=== PATIENT | female | born 1935 | race Caucasian/White ===

== ENCOUNTER 2023-03-22 17:28 | Emergency (ER) | payer MEDICARE ==
[~2023-03-22] VITALS: Ht 167.6 cm; Wt 76.2 kg
[2023-03-22 17:34] VITALS: BP 170/99
== END 2023-03-22 18:00 | disposition home or self-care (01) ==
LOC: ER 17:28
DX: S61.412A Laceration without foreign body of left hand, initial encounter (principal); W22.01XA Walked into wall, initial encounter; Y92.009 Unspecified place in unspecified non-institutional (private) residence as the place of occurrence of the external cause
CPT/HCPCS: 99282

== ENCOUNTER 2023-10-23 10:56 | Emergency (ER) | payer MEDICARE ==
[~2023-10-23] VITALS: Ht 160 cm; Wt 74.8 kg
[2023-10-23 11:05] VITALS: BP 148/91
[2023-10-23 11:43] LABS: BASOPHILS ABSOLUTE AUTO 0.03 K/mm3 (0.00-0.23); BASOPHILS PERCENT AUTO 1 % (0-2); EOSINOPHILS ABSOLUTE AUTO 0.09 K/mm3 (0.00-0.68); EOSINOPHILS PERCENT AUTO 1 % (0-6); Hemoglobin 13.8 g/dL (11.5-16.0); IMMATURE GRAN ABSOLUTE AUTO 0.02 K/mm3 (0.00-0.10); IMMATURE GRAN PERCENT AUTO 0 % (0-1); LYMPHOCYTES ABSOLUTE AUTO 1.75 K/mm3 (0.84-5.20); LYMPHOCYTES PERCENT AUTO 28 % (21-46); MONOCYTES ABSOLUTE AUTO 0.58 K/mm3 (0.16-1.47); MONOCYTES PERCENT AUTO 9 % (4-13); Mean Corpuscular HGB 30.9 pg (26.0-34.0); Mean Corpuscular HGB Conc 32.9 g/dL (31.5-36.5); Mean Corpuscular Volume 94 fL (80-100); Mean Platelet Volume 9.5 fL (9.1-12.4); NEUTROPHILS ABSOLUTE AUTO 3.83 K/mm3 (1.96-9.15); NEUTROPHILS PERCENT AUTO 61 % (41-73); Platelet Count 268 K/mm3 (150-400); RDW Coefficient Variation 13.2 % (11.7-14.2); Red Blood Cell Count 4.46 M/mm3 (3.80-5.20)
[2023-10-23 11:54] LABS: Albumin, Blood 3.2 g/dL (3.4-5.0); Albumin/Globulin Ratio 0.9 (0.8-1.8); Bilirubin, Total 0.5 mg/dL (0.1-1.0); Bun/Creatinine Ratio 18.4 (12.0-20.0); Calcium, Blood 8.9 mg/dL (8.5-10.1); Creatinine, Blood 1.03 mg/dL (0.40-1.00); Globulin, Blood 3.7 g/dL (2.2-4.0); Potassium, Blood 4.5 mmol/L (3.5-5.5); Total Protein, Blood 6.9 g/dL (6.4-8.2)
[2023-10-23] MEDS ORDERED: NS 1,000 ML IV SCH (12:40)
== END 2023-10-23 14:01 | disposition home or self-care (01) ==
LOC: ER 10:56
PROVIDERS: Emergency Medicine
DX: R00.2 Palpitations (principal)
CPT/HCPCS: 80053; 85025; 93005; 93010; 99285-25; J7030

== ENCOUNTER 2024-03-06 10:09 | Inpatient (IN) | payer MEDICARE ==
[~2024-03-06] VITALS: Ht 157.5 cm; Wt 74.8 kg
[2024-03-06] MEDS ORDERED: Ondansetron HCl 2 MG / ML 2ML Vial IV ONE (11:25)
[2024-03-06 11:34] LABS: BASOPHILS ABSOLUTE AUTO 0.06 K/mm3 (0.00-0.23); BASOPHILS PERCENT AUTO 1 % (0-2); EOSINOPHILS ABSOLUTE AUTO 0.01 K/mm3 (0.00-0.68); EOSINOPHILS PERCENT AUTO 0 % (0-6); Hematocrit 38.2 % (33.0-51.0); Hemoglobin 12.8 g/dL (11.5-16.0); IMMATURE GRAN ABSOLUTE AUTO 0.05 K/mm3 (0.00-0.10); IMMATURE GRAN PERCENT AUTO 1 % (0-1); LYMPHOCYTES ABSOLUTE AUTO 1.27 K/mm3 (0.84-5.20); LYMPHOCYTES PERCENT AUTO 14 % (21-46); MONOCYTES ABSOLUTE AUTO 1.14 K/mm3 (0.16-1.47); MONOCYTES PERCENT AUTO 12 % (4-13); Mean Corpuscular HGB 31.3 pg (26.0-34.0); Mean Corpuscular HGB Conc 33.5 g/dL (31.5-36.5); Mean Corpuscular Volume 93 fL (80-100); NEUTROPHILS ABSOLUTE AUTO 6.86 K/mm3 (1.96-9.15); NEUTROPHILS PERCENT AUTO 73 % (41-73); Platelet Count 316 K/mm3 (150-400); RDW Coefficient Variation 13.2 % (11.7-14.2); RDW Standard Deviation 45.7 fL (35.1-46.3); Red Blood Cell Count 4.09 M/mm3 (3.80-5.20); White Blood Cell Count 9.39 K/mm3 (4.00-11.30)
[2024-03-06 11:59] LABS: Albumin, Blood 2.4 g/dL (3.4-5.0); Albumin/Globulin Ratio 0.6 (0.8-1.8); Bilirubin, Total 1.1 mg/dL (0.1-1.0); Bun/Creatinine Ratio 14.3 (12.0-20.0); Calcium, Blood 8.6 mg/dL (8.5-10.1); Creatinine, Blood 0.84 mg/dL (0.40-1.00); Globulin, Blood 4.2 g/dL (2.2-4.0); Potassium, Blood 3.5 mmol/L (3.5-5.5); Total Protein, Blood 6.6 g/dL (6.4-8.2)
[2024-03-06] MEDS ORDERED: Acetaminophen 500 MG Tab PO ONE (14:30)
[2024-03-06] MEDS ORDERED: CefTRIAXone Sodium 2,000 MG in NS 100 ML IV ONE (14:45)
[2024-03-06] MEDS ORDERED: Vancomycin HCL 1,750 MG in NS 500 ML IV ONE (15:10)
[2024-03-06] MEDS ORDERED: Lactated Ringer's 1,000 ML IV SCH (18:40)
[2024-03-06] MEDS ORDERED: Ondansetron HCl 2 MG / ML 2ML Vial IV PRN (18:40)
[2024-03-06] MEDS ORDERED: FLU VACC TS2024-25(6MOS UP)/PF 45 MCG/0.5 ML SYRINGE IM SCH (18:40)
[2024-03-06] MEDS ORDERED: Flecainide Acet50 MG PO (20:32)
[2024-03-06 20:45] VITALS: BP 147/73
[2024-03-06] MEDS ORDERED: Lactobacil 2-S.Thermo-Bifido 1 1 Cap PO SCH (21:00)
[2024-03-06] MEDS ORDERED: Aspir 8181 MG PO (21:47)
[2024-03-07] VITALS (14 sets, daily range): BP systolic 119–148; BP diastolic 56–81
--- NOTE | 2024-03-07 04:32 | NUR ---
SHIFT SUMMARY,PATIENT WAS ABLE TO SLEEP MOST OF THE SHIFT. SHE DID NOT REQUEST PAIN MEDS. LR/ 100ML. TELE SR@98. WE TRIED TO KEEP HER R HAND ELEVATED ON PILLOWS.
[2024-03-07] MEDS ORDERED: Enoxaparin 40 MG/0.4 ML SYR SC SCH (09:00)
[2024-03-07] MEDS ORDERED: Acetaminophen 325 MG TABLET PO PRN (10:50)
[2024-03-07] MEDS ORDERED: OxyCODONE HCL 5 MG TAB PO PRN (10:50)
[2024-03-07] MEDS ORDERED: METO25ER PO (10:54)
[2024-03-07] MEDS ORDERED: MAGNESIUM250 MG PO (11:55)
[2024-03-07] MEDS ORDERED: THERA-D2000 UNIT PO (11:55)
[2024-03-07] MEDS ORDERED: CALCIUM CARBON500 M1 PO (11:55)
[2024-03-07] MEDS ORDERED: CefTRIAXone Sodium 2,000 MG in NS 100 ML IV SCH (15:00)
[2024-03-07] MEDS ORDERED: Lactated Ringer's 1,000 ML IV SCH (15:25)
--- NOTE | 2024-03-07 15:35 | NUR ---
PATIENT TAKEN DOWN TO DAY SURGERY VIA WHEELCHAIR TO HAVE R WRIST I&D. PATIENT ALERT AND INTERACTIVE.
--- NOTE | 2024-03-07 15:38 | NUR ---
History, Chart, Medications and Allergies reviewed before start of procedure. Pre-Op teaching done. Pt verbalizes understanding. PT REMOVED DENTURES INTO DENTURE CUP AND LEFT THEM IN MED FLOOR ROOM ALONG WITH ALL OTHER BELONGINGS. PT UNABLE TO REMOVE DEPENDS D/T POSS UTI AND INCONTINENCE. PT LAST ATE BREAKFAST APPROX 0830. ANES PROVIDER AWARE OF THIS.
[2024-03-07] MEDS ORDERED: Albuterol HFA200 ACT/6.7 GM INH ONE (15:40)
[2024-03-07] MEDS ORDERED: Bupivacaine 0.5% HCl 5 MG/ML 30MLVIAL ONE (15:40)
[2024-03-07] MEDS ORDERED: propofoL 20 ML IV ONE (15:45)
[2024-03-07] MEDS ORDERED: FentaNYL Citrate 50 MCG/ML 2 ML Injection ONE ×3 (16:00→21:17)
[2024-03-07] MEDS ORDERED: Vancomycin HCL 1,250 MG in NS 250 ML IV SCH (16:00)
[2024-03-07] MEDS ORDERED: Ondansetron HCl 2 MG / ML 2ML Vial ONE ×2 (16:03→22:21)
[2024-03-07] MEDS ORDERED: Dexamethasone Sod Phos 10 MG/ML 1ML VIAL ONE ×2 (16:03→22:21)
[2024-03-07] MEDS ORDERED: EpiNEPhrine 1 MG/1 ML 1ML Vial ONE (16:27)
[2024-03-07] MEDS ORDERED: Ketorolac Tromethamine 30mg Vial ONE (16:27)
--- NOTE | 2024-03-07 17:05 | NUR ---
03/07/24 1705 Bess Bundy 0.5% BUPIVACAINE WAS MIXED WITH EPI BY TO CREATE A SOLUTION OF 0.5% BUPIVACAINE WITH EIP 1:200,000. MIXTURE WAS POURED ONTO THE STERILE FIELD.
[2024-03-07] MEDS ORDERED: Metoclopramide HCl 5MG / ML 2ML Vial ONE (17:19)
--- NOTE | 2024-03-07 19:26 | NUR ---
SHIFT SUMMARY PATIENT ALERT AND INTERACTIVE. PATIENT UP TO COMMODE TO VOID/STOOL WITH MINIMAL ASSIST. PATIENT HAVING PAIN/SORENESS IN R WRIST WITH MOVEMENT. PATIENT STATES THAT IT DOESNT HURT IF SHE DOESNT MOVE IT. SLIGHT SWELLING NOTED AND DISCOLORATION PRIOR TO SURGERY. POST OP, PATIENT AWAKE AND INTERACTIVE. PATIENT UP TO COMMODE WITH MINIMAL ASSIST. R WRIST WRAPPED WITH ACCORDIAN DRAIN. SCANT BLOODY DRAINAGE NOTED. PATIENT ABLE TO MOVE ALL OF HER FINGERS AND CAP REFILL PRESENT.
[2024-03-07] MEDS ORDERED: propofoL 0 ML IV ONE (21:17)
[2024-03-07] MEDS ORDERED: Rocuronium Bromide 10 MG/ML 5ML Injection IV ONE (22:21)
[2024-03-07] MEDS ORDERED: ePHEDrine Sulfate 50 MG/ML 1ML Injection ONE (22:21)
[2024-03-08 02:19] VITALS: BP 135/78
--- NOTE | 2024-03-08 04:19 | NUR ---
SHIFT SUMMARY. PATIENT IS A&OX4. PATIENT CALLS APPROPRIATELY AND IS ABLE TO MAKE HER NEEDS KNOWN. PATIENT IS INDEPENDENT AT BASELINE. PATIENT UP TO BSC WITH 1P SBA D/T SURGCAL PROCEDURE DONE 03/07/24. PATIENT IS PLEASANT AND COOPERATIVE WITH CARE. PATIENT C/O PAIN X1-PATIENT NOT MEDICATED PATIENT WAS RESTING AND REQUESTED NOT BE WOKEN UP UNLESS ABSOLUTELY NECESSARY. PATIENTS BED IS LOCKED IN THE LOWEST POSITION WITH CALL LIGHT IN REACH. CARE IS ONGOING.
[2024-03-08 06:26] LABS: BASOPHILS ABSOLUTE AUTO 0.02 K/mm3 (0.00-0.23); BASOPHILS PERCENT AUTO 0 % (0-2); EOSINOPHILS PERCENT AUTO 0 % (0-6); Hematocrit 32.2 % (33.0-51.0); IMMATURE GRAN ABSOLUTE AUTO 0.03 K/mm3 (0.00-0.10); IMMATURE GRAN PERCENT AUTO 1 % (0-1); LYMPHOCYTES ABSOLUTE AUTO 0.47 K/mm3 (0.84-5.20); LYMPHOCYTES PERCENT AUTO 9 % (21-46); MONOCYTES ABSOLUTE AUTO 0.35 K/mm3 (0.16-1.47); MONOCYTES PERCENT AUTO 7 % (4-13); Mean Corpuscular HGB 31.2 pg (26.0-34.0); Mean Corpuscular HGB Conc 34.2 g/dL (31.5-36.5); Mean Corpuscular Volume 91 fL (80-100); NEUTROPHILS ABSOLUTE AUTO 4.38 K/mm3 (1.96-9.15); NEUTROPHILS PERCENT AUTO 83 % (41-73); Platelet Count 270 K/mm3 (150-400); RDW Coefficient Variation 13.1 % (11.7-14.2); RDW Standard Deviation 43.5 fL (35.1-46.3); Red Blood Cell Count 3.53 M/mm3 (3.80-5.20); White Blood Cell Count 5.25 K/mm3 (4.00-11.30)
[2024-03-08 06:57] LABS: Albumin, Blood 1.9 g/dL (3.4-5.0); Albumin/Globulin Ratio 0.5 (0.8-1.8); Bilirubin, Total 0.4 mg/dL (0.1-1.0); Bun/Creatinine Ratio 11.6 (12.0-20.0); Calcium, Blood 8.9 mg/dL (8.5-10.1); Creatinine, Blood 0.69 mg/dL (0.40-1.00); Globulin, Blood 4.1 g/dL (2.2-4.0); Potassium, Blood 3.5 mmol/L (3.5-5.5)
[2024-03-08 07:34] VITALS: BP 149/82
[2024-03-08] MEDS ORDERED: Metoprolol Succinate 25 MG TABCR PO SCH (09:00)
[2024-03-08 11:56] VITALS: BP 125/71
[2024-03-08 15:40] LABS: Vancomycin, Trough 9.9 ug/mL (5.0-10.0)
[2024-03-08 15:41] VITALS: BP 152/76
[2024-03-08] MEDS ORDERED: Vancomycin HCL 750 MG in NS 250 ML IV SCH (16:10)
--- NOTE | 2024-03-08 17:57 | NUR ---
SHIFT SUMMARY PATIENT ALERT AND INTERACTIVE. PATIENT UP TO COMMODE MULTIPLE TIMES WITH MINIMAL ASSIST. PATIENT STATES WRIST SORE AND ABLE TO MOVE ALL FINGERS. BLOODY DRAINAGE NOTED IN ACCORDIAN DRAIN TUBING. DR MOSER IN TO SEE PATIENT. PLANS TO LEAVE DRAIN FOR A FEW MORE DAYS. WAITING FOR CULTURE RESULTS TO DECIDE ANTIBIOTICS FOR DISCHARGE. PATIENT COMPLAINING OF RECTAL PAIN WHEN TRYING TO HAVE A BM. PATIENT STATES SHE HAD A LARGE BM PRIOR TO COMING TO THE HOSPITAL. PATINT STATES THAT SHE HAS GI ISSUES AND NEEDS TO FOLLOW UP WITH SOMEONE AT SOME POINT. PATIENT PASSING BROWN LIQUID STOOL WITH PALE RED TINT TO IT.
[2024-03-08 19:42] VITALS: BP 131/68
--- NOTE | 2024-03-09 04:22 | NUR ---
HIFT SUMMARY. PATIENT IS A&OX4. PATIENT IS 1P MINIMAL ASSIST TO THE BSC-PATIENTS GAIT IS STEADY. PATIENT HAS DRAIN TO RIGHT WRIST THAT IS PUTTING OUT MINIMAL DISCHARGE. PATIENT IS PLEASANT AND COOPERATIVE WITH CARE. PATIENT REPORTS THAT SHE HAS DISCOMFORT WITH BOWEL MOVEMENTS-STOOL HAS A REDISH TINT AT TIMES-PATIENT BELIEVES SHE MIGHT HAVE A HEMMIROID-WILL RELAY TO DAYSHIFT NURSE. PATIENTS BED IS LOCKED IN THE LOWEST POSITION WITH CALL LIGHT IN REACH. CARE IS ONGOING.
[2024-03-09 04:34] VITALS: BP 126/83
[2024-03-09 07:50] VITALS: BP 138/71
[2024-03-09 14:17] LABS: Adenovirus F 40/41 Not Detected (NOT DETECT); Astrovirus Not Detected (NOT DETECT); Campylobacter Sp Not Detected (NOT DETECT); Cryptosporidium Not Detected (NOT DETECT); Cyclospora Cayetanensis Not Detected (NOT DETECT); E. Coli O157 Not Detected (NOT DETECT); Entamoeba Histolytica Not Detected (NOT DETECT); Enteroaggregative E. coli-EAEC Not Detected (NOT DETECT); Enteropathogenic E. coli-EPEC Not Detected (NOT DETECT); Enterotoxigenic E. coli-ETEC Not Detected (NOT DETECT); Giardia Lamblia Not Detected (NOT DETECT); Norovirus GI/GII Not Detected (NOT DETECT); Plesiomonas Shigelloides Not Detected (NOT DETECT); Rotavirus A Not Detected (NOT DETECT); Salmonella Sp Not Detected (NOT DETECT); Sapovirus Not Detected (NOT DETECT); Shiga Toxin-prod E. coli-STEC Not Detected (NOT DETECT); Shigella/Enteroin E. coli-EIEC Not Detected (NOT DETECT); Vibrio Cholerae Not Detected (NOT DETECT); Vibrio Sp Not Detected (NOT DETECT); Yersinia Enterocolitica Not Detected (NOT DETECT)
[2024-03-09] MEDS ORDERED: NS 250 ML IV PRN (14:30)
[2024-03-09 14:54] VITALS: BP 126/69
[2024-03-09 15:20] LABS: Vancomycin, Trough 15.9 ug/mL (5.0-10.0)
[2024-03-09] MEDS ORDERED: Dose Adjust by Pharmacy XX STA (15:29)
[2024-03-09 19:49] VITALS: BP 149/76
[2024-03-09] MEDS ORDERED: Phenyleph/Mineral Oil/Petrolat 1 APPLIC/57 GM Tube PR PRN (20:00)
[2024-03-10 02:50] VITALS: BP 137/69
[2024-03-10 05:34] LABS: BASOPHILS ABSOLUTE AUTO 0.03 K/mm3 (0.00-0.23); BASOPHILS PERCENT AUTO 1 % (0-2); EOSINOPHILS ABSOLUTE AUTO 0.06 K/mm3 (0.00-0.68); EOSINOPHILS PERCENT AUTO 1 % (0-6); Hematocrit 32.6 % (33.0-51.0); Hemoglobin 10.8 g/dL (11.5-16.0); IMMATURE GRAN ABSOLUTE AUTO 0.07 K/mm3 (0.00-0.10); IMMATURE GRAN PERCENT AUTO 1 % (0-1); LYMPHOCYTES ABSOLUTE AUTO 1.09 K/mm3 (0.84-5.20); LYMPHOCYTES PERCENT AUTO 17 % (21-46); MONOCYTES ABSOLUTE AUTO 0.89 K/mm3 (0.16-1.47); MONOCYTES PERCENT AUTO 14 % (4-13); Mean Corpuscular HGB 30.7 pg (26.0-34.0); Mean Corpuscular HGB Conc 33.1 g/dL (31.5-36.5); Mean Corpuscular Volume 93 fL (80-100); Mean Platelet Volume 8.9 fL (9.1-12.4); NEUTROPHILS ABSOLUTE AUTO 4.32 K/mm3 (1.96-9.15); NEUTROPHILS PERCENT AUTO 67 % (41-73); Platelet Count 289 K/mm3 (150-400); RDW Coefficient Variation 13.6 % (11.7-14.2); RDW Standard Deviation 45.9 fL (35.1-46.3); Red Blood Cell Count 3.52 M/mm3 (3.80-5.20); White Blood Cell Count 6.46 K/mm3 (4.00-11.30)
[2024-03-10 05:54] LABS: Bun/Creatinine Ratio 11.6 (12.0-20.0); Calcium, Blood 8.4 mg/dL (8.5-10.1); Creatinine, Blood 0.78 mg/dL (0.40-1.00); Potassium, Blood 3.4 mmol/L (3.5-5.5)
--- NOTE | 2024-03-10 06:42 | NUR ---
NOC SUMMARY- PT PAIN MANAGED WELL. PT COMPLAINING OF HEMORRHOID DISCOMFORT. PROVIDER ORDERED PREP H. MED APPLIED W/ RELIEF. PT HAD HER IV INFILTRATE WITH VANCO. IV REMOVED AND ARM ELEVATED. PT HAS NEW IV. PT CONTINUES TO HAVE FREQUENT BM'S, LIQUID. PT RESTED QUIETLY THROUGH THE SHIFT. CALL LIGHT IN REACH.
[2024-03-10 07:37] VITALS: BP 124/81
[2024-03-10] MEDS ORDERED: Potassium Chloride 20 MEQ TabCR PO ONE (10:00)
[2024-03-10 14:54] VITALS: BP 107/76
--- NOTE | 2024-03-10 17:55 | NUR ---
SHIFT SUMMARY: PT A/O X4. PLEASANT AND COOPERATIVE WITH CARE. PT CONTINUED TO C/O ABD PAIN THIS SHIFT. PT DENIED NEED FOR PAIN MEDICATION. CONTINUES TO HAVE LOOSE DIARRHEA. DR. MOSER IN ROOM THIS AM TO ASSESS SURGICAL SITE. PT HAD ARM UNWRAPPED FOR APPROX 30 MINUTES THIS AM. AWAITING CULTURES FOR PROPER ABXPOST DISCHARGE. CALL FROM TELE THIS AM STATING PT CONVERTED TO AFIB. PT STATED SHE TAKES MEDICATION FOR AFIB BUT HAS NOT BEEN TAKING IT SINCE ADMISSION. SPOKE WITH DR. PALOMO AND HAD ORDER PLACED FOR HOME MEDICATION. CALL LIGHT IN REACH. BED IN LOWEST POSITION.
[2024-03-10 19:44] VITALS: BP 139/78
[2024-03-10] MEDS ORDERED: Flecainide Acetate 100 MG Tab PO SCH (21:00)
[2024-03-11 01:35] VITALS: BP 120/60
--- NOTE | 2024-03-11 04:26 | NUR ---
SHIFT SUMMARY PATIENT HAD NO ACUTE CHANGES. SLEEPING AT SHIFT CHANGE. AXOX 4 AND ONE ASSIST TO BSC. DENIES CHEST PAIN, SOB, AND N/V. VSS/AFEBRILE. PIV INTACT. IV ABX INFUSED. DRESSING TO R FOREARM INTACT. TELE MONITOR NSR 84 WITH [employer] SALESPERSON REPORTED SHE CONVERTED @ 18:09 FROM A-FLUTTER. CALL LIGHT IN REACH. BED IN LOWEST POSITION. WILL CONTINUE TO MONITOR UNTIL DAY SHIFT NURSE ASSUMES CARE.
[2024-03-11 07:17] VITALS: BP 128/67
[2024-03-11 08:24] LABS: BASOPHILS ABSOLUTE AUTO 0.03 K/mm3 (0.00-0.23); BASOPHILS PERCENT AUTO 1 % (0-2); EOSINOPHILS PERCENT AUTO 2 % (0-6); Hematocrit 30.3 % (33.0-51.0); Hemoglobin 10.1 g/dL (11.5-16.0); IMMATURE GRAN ABSOLUTE AUTO 0.06 K/mm3 (0.00-0.10); IMMATURE GRAN PERCENT AUTO 1 % (0-1); LYMPHOCYTES ABSOLUTE AUTO 0.97 K/mm3 (0.84-5.20); LYMPHOCYTES PERCENT AUTO 18 % (21-46); MONOCYTES ABSOLUTE AUTO 0.71 K/mm3 (0.16-1.47); MONOCYTES PERCENT AUTO 13 % (4-13); Mean Corpuscular HGB Conc 33.3 g/dL (31.5-36.5); Mean Corpuscular Volume 93 fL (80-100); Mean Platelet Volume 9.1 fL (9.1-12.4); NEUTROPHILS ABSOLUTE AUTO 3.43 K/mm3 (1.96-9.15); NEUTROPHILS PERCENT AUTO 65 % (41-73); Platelet Count 259 K/mm3 (150-400); RDW Coefficient Variation 13.3 % (11.7-14.2); RDW Standard Deviation 45.4 fL (35.1-46.3); Red Blood Cell Count 3.26 M/mm3 (3.80-5.20)
[2024-03-11 08:47] LABS: Albumin, Blood 1.6 g/dL (3.4-5.0); Albumin/Globulin Ratio 0.4 (0.8-1.8); Bilirubin, Total 0.4 mg/dL (0.1-1.0); Bun/Creatinine Ratio 10.8 (12.0-20.0); Calcium, Blood 8.2 mg/dL (8.5-10.1); Creatinine, Blood 0.65 mg/dL (0.40-1.00); Globulin, Blood 3.6 g/dL (2.2-4.0); Potassium, Blood 3.6 mmol/L (3.5-5.5); Total Protein, Blood 5.2 g/dL (6.4-8.2)
--- NOTE | 2024-03-11 09:00 | NUR ---
Pt laying in bed, awake, a/ox4, cooperative with care, follows commands well, states her abd hurts and is continuing to have loose stools since before she came in, states she spoke to about it, lungs are clear in upper reyes, dim in bases, resp even and unlabored, no cough noted, hrr, tele in place, currenlty running sr per monitor, see strip, has gone in and out of afib, no edema noted, ppp+1, cap refill <3 sec, vs stable, afebrile, piv to lac, site is clear and patent, btx4, abd flat soft nontender, voids without diff, skin c/w/d, except rfa has dressing for I&D, no drainage noted, ernst irene, call light in reach.
[2024-03-11] MEDS ORDERED: Loperamide HCl 2 MG Cap PO ONE (10:40)
[2024-03-11] MEDS ORDERED: VISBIOME 112.51 EACH PO (15:02)
[2024-03-11] MEDS ORDERED: OXYC5 PO (15:02)
[2024-03-11] MEDS ORDERED: CLIN150 PO (15:03)
[2024-03-11 15:34] LABS: Vancomycin, Trough 14.8 ug/mL (5.0-10.0)
[2024-03-11 16:41] VITALS: BP 135/70
--- NOTE | 2024-03-11 18:02 | NUR ---
Pt daughter here to take her home, she has been discharged, went over instructions with both of them, they verbalized understanding, iv removed intact, hard script for oxy was given to daughter to fill, she states she did, left via wheelchair with furniture mechanic in attendence with all her belongings.
== END 2024-03-11 18:14 | disposition home or self-care (01) | DRG 506 ==
LOC: ER 10:09 → MEDS 18:36 → ERHOLD 18:36 → MEDS 20:35
PROVIDERS: Family Medicine; Nurse Practitioner Acute Care; Physician Assistant; Student in an Organized Health Care Education/Training Program; ADMIT Student in an Organized Health Care Education/Training Program
PROC: 0R9N3ZZ Drainage of Right Wrist Joint, Percutaneous Approach (ICD-10-PCS; principal; 2024-03-06)
PROC: 0R9N0ZZ Drainage of Right Wrist Joint, Open Approach (ICD-10-PCS; 2024-03-07)
PROC: 0RBN0ZZ Excision of Right Wrist Joint, Open Approach (ICD-10-PCS; 2024-03-07)
DX: M00.9 Pyogenic arthritis, unspecified (principal); L03.113 Cellulitis of right upper limb; I48.91 Unspecified atrial fibrillation; R19.7 Diarrhea, unspecified; E78.5 Hyperlipidemia, unspecified; M25.431 Effusion, right wrist; Z88.5 Allergy status to narcotic agent; Z98.890 Other specified postprocedural states; Z79.899 Other long term (current) drug therapy; Z79.82 Long term (current) use of aspirin; Z95.818 Presence of other cardiac implants and grafts
CPT/HCPCS: 20605; 36415; 73110; 73201; 80048; 80053; 80202; 83605; 83735; 85025; 85651; 86140; 87040; 87070; 87075; 87205; 87507; 96365-59; 96366-59; 96367-59; 96375-59; 99284-25; A9270; J0171; J0696; J1100; J1650; J1885; J2405; J2704; J2765; J3010; J3370; J7040; J7050; J7120; Q9967

== ENCOUNTER 2024-05-09 19:45 | Observation (INO) | payer MEDICARE ==
[~2024-05-09] VITALS: Ht 157.5 cm; Wt 69.4 kg
[~2024-05-09 19:45] MED LIST: Aspir 8181 MG PO; CALCIUM CARBON500 M1 PO; CLIN150 PO; Flecainide Acet50 MG PO; MAGNESIUM250 MG PO; METO25ER PO; OXYC5 PO; THERA-D2000 UNIT PO; VISBIOME 112.51 EACH PO
[2024-05-09 21:06] LABS: BASOPHILS ABSOLUTE AUTO 0.06 K/mm3 (0.00-0.23); BASOPHILS PERCENT AUTO 1 % (0-2); EOSINOPHILS ABSOLUTE AUTO 0.03 K/mm3 (0.00-0.68); EOSINOPHILS PERCENT AUTO 0 % (0-6); Hematocrit 37.6 % (33.0-51.0); Hemoglobin 12.5 g/dL (11.5-16.0); IMMATURE GRAN ABSOLUTE AUTO 0.05 K/mm3 (0.00-0.10); IMMATURE GRAN PERCENT AUTO 1 % (0-1); LYMPHOCYTES ABSOLUTE AUTO 2.55 K/mm3 (0.84-5.20); LYMPHOCYTES PERCENT AUTO 24 % (21-46); MONOCYTES ABSOLUTE AUTO 0.93 K/mm3 (0.16-1.47); MONOCYTES PERCENT AUTO 9 % (4-13); Mean Corpuscular HGB 30.6 pg (26.0-34.0); Mean Corpuscular HGB Conc 33.2 g/dL (31.5-36.5); Mean Corpuscular Volume 92 fL (80-100); Mean Platelet Volume 8.9 fL (9.1-12.4); NEUTROPHILS ABSOLUTE AUTO 7.16 K/mm3 (1.96-9.15); NEUTROPHILS PERCENT AUTO 66 % (41-73); Platelet Count 388 K/mm3 (150-400); RDW Coefficient Variation 14.6 % (11.7-14.2); RDW Standard Deviation 49.2 fL (35.1-46.3); Red Blood Cell Count 4.09 M/mm3 (3.80-5.20); White Blood Cell Count 10.78 K/mm3 (4.00-11.30)
[2024-05-09] MEDS ORDERED: Flecainide Acetate 100 MG Tab PO ONE (21:10)
[2024-05-09] MEDS ORDERED: Potassium Chl 20MEQ/Water100ML 100 ML IV SCH (21:40)
[2024-05-09] MEDS ORDERED: NS 1,000 ML IV SCH (21:40)
[2024-05-09 21:43] LABS: Albumin, Blood 2.1 g/dL (3.4-5.0); Albumin/Globulin Ratio 0.5 (0.8-1.8); Bilirubin, Total 0.8 mg/dL (0.1-1.0); Calcium, Blood 8.6 mg/dL (8.5-10.1); Creatinine, Blood 1.44 mg/dL (0.40-1.00); Globulin, Blood 4.6 g/dL (2.2-4.0); Potassium, Blood 2.4 mmol/L (3.5-5.5); Total Protein, Blood 6.7 g/dL (6.4-8.2)
[2024-05-09] MEDS ORDERED: Magnesium Sulf 2 GM/Water 50ML 50 ML IV ONE (21:45)
[2024-05-09 22:01] LABS: Magnesium, Blood 2.1 mg/dL (1.6-2.4)
[2024-05-09 22:24] LABS: Phosphorus, Blood 1.5 mg/dL (2.5-4.9); Thyroid Stimulating Hormone 5.98 uIU/mL (0.360-4.800)
[2024-05-09 23:48] LABS: Source, Urine Clean Catch
[2024-05-09 23:51] LABS: Bilirubin, Urine Neg (Neg); Blood, Urine 2+ (Neg); Glucose Qualitative, Urine Neg (Neg); Ketones, Urine Neg (Neg); Leukocyte Esterase, Urine 1+ (Neg); Nitrite, Urine Neg (Neg); Protein, Urine 2+ (Neg); Specific Gravity, Urine 1.005 (1.003-1.022); Urobilinogen, Urine 1+ (Normal); pH, Urine 6.5 (5.0-8.0)
[2024-05-09 23:52] LABS: Appearance, Urine Hazy (Clear); Color, Urine Yellow (P-Yellow)
[2024-05-09 23:58] LABS: Amorphous Light (0-Heavy); Bacteria Few /hpf; Red Blood Cells, Urine 0-2 /hpf (0-2); Squamous Epithelial Cells Mod /hpf (Few); White Blood Cells, Urine 0-2 /hpf (0-5)
[2024-05-10] MEDS ORDERED: FLU VACC TS2024-25(6MOS UP)/PF 45 MCG/0.5 ML SYRINGE IM SCH (00:15)
[2024-05-10] MEDS ORDERED: Potassium Phosphate Dibasic 15 MM in Dextrose 5% 250 ML IV SCH (01:00)
[2024-05-10] MEDS ORDERED: NS 250 ML IV PRN (02:15)
[2024-05-10 03:39] VITALS: BP 133/62
[2024-05-10 06:59] LABS: BASOPHILS ABSOLUTE AUTO 0.02 K/mm3 (0.00-0.23); BASOPHILS PERCENT AUTO 0 % (0-2); EOSINOPHILS ABSOLUTE AUTO 0.02 K/mm3 (0.00-0.68); EOSINOPHILS PERCENT AUTO 0 % (0-6); Hematocrit 32.7 % (33.0-51.0); Hemoglobin 10.9 g/dL (11.5-16.0); IMMATURE GRAN ABSOLUTE AUTO 0.03 K/mm3 (0.00-0.10); IMMATURE GRAN PERCENT AUTO 0 % (0-1); LYMPHOCYTES ABSOLUTE AUTO 2.03 K/mm3 (0.84-5.20); LYMPHOCYTES PERCENT AUTO 30 % (21-46); MONOCYTES ABSOLUTE AUTO 0.64 K/mm3 (0.16-1.47); MONOCYTES PERCENT AUTO 10 % (4-13); Mean Corpuscular HGB 30.4 pg (26.0-34.0); Mean Corpuscular HGB Conc 33.3 g/dL (31.5-36.5); Mean Corpuscular Volume 91 fL (80-100); Mean Platelet Volume 9.2 fL (9.1-12.4); NEUTROPHILS ABSOLUTE AUTO 3.95 K/mm3 (1.96-9.15); NEUTROPHILS PERCENT AUTO 59 % (41-73); Platelet Count 270 K/mm3 (150-400); RDW Coefficient Variation 14.6 % (11.7-14.2); RDW Standard Deviation 49.4 fL (35.1-46.3); Red Blood Cell Count 3.58 M/mm3 (3.80-5.20); White Blood Cell Count 6.69 K/mm3 (4.00-11.30)
[2024-05-10 07:09] LABS: Albumin, Blood 1.7 g/dL (3.4-5.0); Albumin/Globulin Ratio 0.4 (0.8-1.8); Bilirubin, Total 0.8 mg/dL (0.1-1.0); Bun/Creatinine Ratio 9.5 (12.0-20.0); Calcium, Blood 7.8 mg/dL (8.5-10.1); Creatinine, Blood 1.16 mg/dL (0.40-1.00); Globulin, Blood 3.8 g/dL (2.2-4.0); Magnesium, Blood 2.4 mg/dL (1.6-2.4); Phosphorus, Blood 1.2 mg/dL (2.5-4.9); Potassium, Blood 2.5 mmol/L (3.5-5.5); Total Protein, Blood 5.5 g/dL (6.4-8.2)
[2024-05-10 07:34] VITALS: BP 137/73
--- NOTE | 2024-05-10 08:30 | NUR ---
ASSUMPTION NOTE: THIS RN TO ASSUME CARE OF PATIENT. PATIENT LAYING IN BED, EASILY AROUSABLE. VITAL SIGNS TAKEN AND PATIENT IS STABLE. ASKED TO USE BED SIDE COMMODE, CONTINUES TO PASS LOOSE LIQUID STOOL. WAS ABLE TO EAT BREAKFAST MD CAME BY AND GAVE REGULAR DIET ORDERS. PATIENT HAS BED IN LOWEST POSITION AND CALL LIGHT WITHIN REACH.
[2024-05-10] MEDS ORDERED: Aspirin 81 MG Chew PO SCH (09:00)
[2024-05-10] MEDS ORDERED: Potassium Phosphate,Monobasic 500 MG Tablet PO SCH (09:00)
[2024-05-10] MEDS ORDERED: Flecainide Acetate 100 MG Tab PO SCH (09:00)
[2024-05-10] MEDS ORDERED: Metoprolol Succinate 25 MG TABCR PO SCH (09:00)
[2024-05-10] MEDS ORDERED: Loperamide HCl 2 MG Cap PO PRN (10:25)
[2024-05-10] MEDS ORDERED: Zinc Oxide Ointment 30 GM TOP PRN (10:25)
--- NOTE | 2024-05-10 11:17 | NUR ---
PATIENT WORKED WITH [facility]UP[facility]ER[facility] AND THEY SIGNED OFF PATIENT IS INDEPENDENT IN THE ROOM AND DID WELL WORKING WITH THEM.
[2024-05-10 11:53] VITALS: BP 114/59
[2024-05-10 13:15] LABS: Bun/Creatinine Ratio 10.8 (12.0-20.0); Creatinine, Blood 1.11 mg/dL (0.40-1.00); Magnesium, Blood 2.1 mg/dL (1.6-2.4); Phosphorus, Blood 2.1 mg/dL (2.5-4.9); Potassium, Blood 2.9 mmol/L (3.5-5.5)
--- NOTE | 2024-05-10 13:17 | NUR ---
PT DISCLOSED THAT SHE HAD A BOWEL OBSTRUCTION PRIOR AND WAS TAKEN TO [place] AND THE OBSTRUCTION WAS REMOVED. IT HAS BEEN 3 MONTHS THAT PATIENT HAS HAD DIARRHEA, GAS & ABDOMINAL PAIN. SHE IS SCHEDULED TO HAVE A COLONSCOPY THIS MONTH ON THE . PT NOTIFIED THAT THE ABDOMINAL CT DONE SHOWED INFLAMMATION AND COLLITIS. PATIENT HESITANT TO TAKE IMMODIUM ON EMAR WAS REASSURED THAT IT WILL THICKEN HER STOOL TO HELP WITH HER LOW POTTASIUM LEVELS. PATIENT HAS CALL LIGHT WITHIN REACH AND BED AT LOWEST POSITION.
[2024-05-10 15:27] VITALS: BP 115/56
--- NOTE | 2024-05-10 17:24 | NUR ---
SHIFT SUMMARY: PATIENT IS ALERT AND ORIENTED X4 AND ACTIVE IN HER CARE. ON TELE SHOWING SINUS RYTHM WITH RATE IN 80'S. SATTING >92% ON ROOM AIR. PATIENT CONTINUES TO PASS LIQUID & LOOSE STOOLS. COCCYX IS RED AND BLANCHABLE, ZINC CREAM WAS ORDERED AND IMMODIUM WAS ADDED. PATIENT WAS HESITANT ON TAKING THE IMMODIUM SHE HAS BEFORE AND FELT NO RELIEF. SHE STATE SHE HAD A PREVIOUS BOWEL OBSTRUCTION AND THAT IT DID NOT HELP PREVIOUSLY, SEE PREVIOUS NOTES FOR FURTHER INFORMATION. PATIENT WAS ABLE TO GET UP AND WORKED WITH OCCUPATIONAL THERAPY, AND THEY SIGNED OFF SHE IS INDEPENDENT IN THE ROOM. PATIENT WAS ABLE TO GET REST THROUGHOUT THE SHIFT. THIS RN WILL CONTINUE TO MONITOR UNTIL MANAGER APPLE RN ASSUMES CARE.
[2024-05-10] MEDS ORDERED: Diphenoxylat/Atrop 2.5 / 0.025MG 1 Tab PO PRN (18:00)
[2024-05-10 19:46] VITALS: BP 132/68
[2024-05-11 00:40] VITALS: BP 120/63
[2024-05-11 03:28] VITALS: BP 139/71
[2024-05-11 05:29] LABS: Albumin, Blood 1.5 g/dL (3.4-5.0); Albumin/Globulin Ratio 0.5 (0.8-1.8); Bilirubin, Total 0.5 mg/dL (0.1-1.0); Bun/Creatinine Ratio 14.4 (12.0-20.0); Calcium, Blood 7.4 mg/dL (8.5-10.1); Creatinine, Blood 0.98 mg/dL (0.40-1.00); Globulin, Blood 3.2 g/dL (2.2-4.0); Magnesium, Blood 1.9 mg/dL (1.6-2.4); Phosphorus, Blood 2.5 mg/dL (2.5-4.9); Potassium, Blood 2.7 mmol/L (3.5-5.5); Total Protein, Blood 4.7 g/dL (6.4-8.2)
--- NOTE | 2024-05-11 05:35 | NUR ---
SHIFT SUMMARY PT A&O X4, CALM, COOPERATIVE TO CARE. HR IN THE 70'S-80'S, SR, SHE DENIES CP/PRESSURE, NUMB/TINGLING. O2 >92% ON RA, SHE DENIES SOB. PT HAS HAD A FEW LOOSE STOOLS THIS SHIFT AND ONE FORMED STOOL. PT REPORTS HX OF HEMORHOIDS. PT REPORTS DIARRHEA X3 MONTHS AND THIS HAS CAUSED IRRITATION TO THE HEMORRHOIDS. PT RESTING IN BED AT THIS TIME. WILL MONITOR PT AND REPORT TO ONCOMING NURSE.
[2024-05-11] MEDS ORDERED: Potassium Chloride 20 MEQ TabCR PO ONE (06:20)
--- NOTE | 2024-05-11 06:44 | NUR ---
UPDATE PT HAD A POTASSIUM OF 2.7. CALLED PROVIDER TO UPDATE THEM OF THIS. ORDER PLACED FOR PO 60 MEQ OF POTASSIUM AND CMP FOR 1000.
[2024-05-11] MEDS ORDERED: Potassium Chloride 20 MEQ TabCR PO SCH (08:00)
[2024-05-11 08:45] VITALS: BP 123/57
[2024-05-11] MEDS ORDERED: Enoxaparin 40 MG/0.4 ML SYR SC SCH (09:00)
--- NOTE | 2024-05-11 10:53 | NUR ---
Pt states two large BM this morning, but no diarrhea. otherwise without any complaints. Ambulatory to the bathroom for toileting and personal hygeine, PCT assisting her.
[2024-05-11 11:44] VITALS: BP 107/60
--- NOTE | 2024-05-11 11:46 | NUR ---
BMP DRAW AT THIS TIME.
[2024-05-11 13:20] LABS: Bun/Creatinine Ratio 14.9 (12.0-20.0); Calcium, Blood 7.5 mg/dL (8.5-10.1); Creatinine, Blood 1.01 mg/dL (0.40-1.00); Potassium, Blood 3.9 mmol/L (3.5-5.5)
[2024-05-11] MEDS ORDERED: ASPI81CH PO (14:20)
[2024-05-11] MEDS ORDERED: FLECAINIDE 50 MG PO (14:21)
[2024-05-11] MEDS ORDERED: METO25ER PO (14:22)
[2024-05-11] MEDS ORDERED: POTCHL20ER PO (14:30)
--- NOTE | 2024-05-11 15:34 | NUR ---
Discharge instructions reviewed with the patient. Instructed to pickling drum operator her Rx at [facility], and start in the morning. She is also instructed to get lab work done tomorrow and follow up with her PCP on Wednesday (appointment info already given to pt by Nba) and for her colonoscopy on Wednesday next week. IV removed and tele removed. She is waiting for her daughter or son to arrive to give her a ride home.
--- NOTE | 2024-05-11 16:53 | NUR ---
Pt was taken out for discharge in wheelchair to waiting private vehicle driven by her daughter.
== END 2024-05-11 16:52 | disposition home or self-care (01) ==
LOC: ER 19:45 → PCU 19:46 → ERHOLD 19:46 → PCU 05-10 01:35
PROVIDERS: Emergency Medicine; Family Medicine; ADMIT Student in an Organized Health Care Education/Training Program
DX: E87.6 Hypokalemia (principal); E83.39 Other disorders of phosphorus metabolism; E86.0 Dehydration; K52.9 Noninfective gastroenteritis and colitis, unspecified; I48.91 Unspecified atrial fibrillation; E83.42 Hypomagnesemia; A41.9 Sepsis, unspecified organism; N39.0 Urinary tract infection, site not specified; N17.9 Acute kidney failure, unspecified; E87.21 Acute metabolic acidosis; E78.5 Hyperlipidemia, unspecified; Z66 Do not resuscitate; Z88.5 Allergy status to narcotic agent; Z79.82 Long term (current) use of aspirin; Z79.899 Other long term (current) drug therapy
CPT/HCPCS: 36415; 71260; 74177; 80048; 80053; 81001; 83605; 83735; 84100; 84443; 84484; 85025; 87040; 93005; 93010; 94762; 96365; 96366; 96368; 96372; 97165; 97530; 99285-25; A9270; G0378; J1650; J3475; J3480; J7030; J7050; J7060; Q9967

== ENCOUNTER 2024-05-15 11:07 | Emergency (ER) | payer MEDICARE ==
[~2024-05-15] VITALS: Ht 157.5 cm; Wt 66.2 kg
[~2024-05-15 11:07] MED LIST changes: +ASPI81CH PO; +FLECAINIDE 50 MG PO; +POTCHL20ER PO
[2024-05-15 12:29] LABS: BASOPHILS ABSOLUTE AUTO 0.02 K/mm3 (0.00-0.23); BASOPHILS PERCENT AUTO 0 % (0-2); EOSINOPHILS ABSOLUTE AUTO 0.02 K/mm3 (0.00-0.68); EOSINOPHILS PERCENT AUTO 0 % (0-6); Hematocrit 38.3 % (33.0-51.0); Hemoglobin 12.4 g/dL (11.5-16.0); IMMATURE GRAN ABSOLUTE AUTO 0.09 K/mm3 (0.00-0.10); IMMATURE GRAN PERCENT AUTO 1 % (0-1); LYMPHOCYTES ABSOLUTE AUTO 1.55 K/mm3 (0.84-5.20); LYMPHOCYTES PERCENT AUTO 20 % (21-46); MONOCYTES ABSOLUTE AUTO 0.44 K/mm3 (0.16-1.47); MONOCYTES PERCENT AUTO 6 % (4-13); Mean Corpuscular HGB 30.3 pg (26.0-34.0); Mean Corpuscular HGB Conc 32.4 g/dL (31.5-36.5); Mean Corpuscular Volume 94 fL (80-100); Mean Platelet Volume 8.7 fL (9.1-12.4); NEUTROPHILS ABSOLUTE AUTO 5.58 K/mm3 (1.96-9.15); NEUTROPHILS PERCENT AUTO 72 % (41-73); Platelet Count 404 K/mm3 (150-400); RDW Coefficient Variation 15.3 % (11.7-14.2); RDW Standard Deviation 52.6 fL (35.1-46.3); Red Blood Cell Count 4.09 M/mm3 (3.80-5.20)
[2024-05-15] MEDS ORDERED: NS 1,000 ML IV SCH (12:35)
[2024-05-15 12:43] LABS: Albumin, Blood 2.3 g/dL (3.4-5.0); Albumin/Globulin Ratio 0.5 (0.8-1.8); Bilirubin, Total 0.6 mg/dL (0.1-1.0); Bun/Creatinine Ratio 6.1 (12.0-20.0); Creatinine, Blood 1.14 mg/dL (0.40-1.00); Globulin, Blood 4.9 g/dL (2.2-4.0); Potassium, Blood 4.7 mmol/L (3.5-5.5); Total Protein, Blood 7.2 g/dL (6.4-8.2)
[2024-05-15 14:15] VITALS: BP 155/85
== END 2024-05-15 14:32 | disposition home or self-care (01) ==
LOC: ER 11:07
PROVIDERS: Student in an Organized Health Care Education/Training Program
DX: E86.0 Dehydration (principal); I95.9 Hypotension, unspecified; I48.91 Unspecified atrial fibrillation; Z79.82 Long term (current) use of aspirin; Z79.899 Other long term (current) drug therapy
CPT/HCPCS: 80053; 85025; 93005; 93010; 96360; 99285-25; J7030

== ENCOUNTER 2024-06-06 15:08 | Inpatient (IN) | payer MEDICARE ==
[~2024-06-06] VITALS: Ht 160 cm; Wt 72.6 kg
[2024-06-06] MEDS ORDERED: Lactated Ringer's 500 ML IV ONE (15:35)
[2024-06-06] MEDS ORDERED: Metoprolol Tartrate 1 MG/ML 5 ML VIAL IV ONE (15:35)
[2024-06-06 15:57] LABS: Hematocrit 37.1 % (33.0-51.0); Hemoglobin 12.6 g/dL (11.5-16.0); Mean Corpuscular Volume 91 fL (80-100); Mean Platelet Volume 9.6 fL (9.1-12.4); Platelet Count 313 K/mm3 (150-400); RDW Coefficient Variation 14.6 % (11.7-14.2); RDW Standard Deviation 49.1 fL (35.1-46.3); Red Blood Cell Count 4.07 M/mm3 (3.80-5.20); White Blood Cell Count 14.47 K/mm3 (4.00-11.30)
[2024-06-06 16:01] LABS: Albumin, Blood 1.4 g/dL (3.4-5.0); Albumin/Globulin Ratio 0.3 (0.8-1.8); Bilirubin, Total 0.7 mg/dL (0.1-1.0); Bun/Creatinine Ratio 22.8 (12.0-20.0); Creatinine, Blood 1.71 mg/dL (0.40-1.00); Globulin, Blood 4.3 g/dL (2.2-4.0); Magnesium, Blood 2.7 mg/dL (1.6-2.4); Potassium, Blood 4.4 mmol/L (3.5-5.5); Total Protein, Blood 5.7 g/dL (6.4-8.2)
[2024-06-06 16:04] LABS: Source, Urine Clean Catch
[2024-06-06 16:17] LABS: Appearance, Urine Hazy (Clear); Blood, Urine 2+ (Neg); Color, Urine Amber (P-Yellow); Glucose Qualitative, Urine Neg (Neg); Ketones, Urine 1+ (Neg); Leukocyte Esterase, Urine 1+ (Neg); Nitrite, Urine Pos (Neg); Protein, Urine 2+ (Neg); Specific Gravity, Urine 1.025 (1.003-1.022); Urobilinogen, Urine 2+ (Normal)
[2024-06-06 16:23] LABS: BAND PERCENT MAN 9 % (0-8); BASOPHILS PERCENT MAN 0 % (0-2); EOSINOPHILS PERCENT MAN 0 % (0-6); LYMPHOCYTES ABSOLUTE MAN 0.86 K/mm3 (0.84-5.20); LYMPHOCYTES PERCENT MAN 6 % (21-46); MONOCYTES ABSOLUTE MAN 0.57 K/mm3 (0.16-1.47); MONOCYTES PERCENT MAN 4 % (4-13); NEUTROPHILS ABSOLUTE MAN 13.02 K/mm3 (1.96-9.15); SEG NEUTROPHILS PERCENT MAN 81 % (41-73); TOTAL CELLS COUNTED 100
[2024-06-06 16:29] LABS: International Normalized Ratio 1.07; Prothrombin Time Results 11.4 Sec (9.7-11.5)
[2024-06-06 16:38] LABS: Bilirubin, Urine 2+ (Neg)
[2024-06-06 16:39] LABS: Bacteria Many /hpf; Squamous Epithelial Cells Mod /hpf (Few)
[2024-06-06] MEDS ORDERED: CefTRIAXone Sodium 1,000 MG in NS 100 ML IV ONE (16:55)
[2024-06-06 17:38] LABS: Influenza A, PCR NEGATIVE (NEGATIVE); Influenza B, PCR NEGATIVE (NEGATIVE); Resp Syncytial Virus, PCR NEGATIVE (NEGATIVE); SARS-Cov-2 (COVID-19) PCR, MMC NEGATIVE (NEGATIVE)
[2024-06-06] MEDS ORDERED: Loperamide HCl 2 MG Cap PO PRN (18:00)
[2024-06-06] MEDS ORDERED: NS 1,000 ML IV SCH (18:00)
[2024-06-06] MEDS ORDERED: Loperamide HCl 2 MG Cap PO ONE (18:00)
[2024-06-06] MEDS ORDERED: FLU VACC TS2024-25(6MOS UP)/PF 45 MCG/0.5 ML SYRINGE IM ONE (18:00)
[2024-06-06] MEDS ORDERED: Metoprolol Tartrate 1 MG/ML 5 ML VIAL IV PRN (18:10)
[2024-06-06 19:19] VITALS: BP 105/56
[2024-06-06] MEDS ORDERED: Flecainide Acetate 100 MG Tab PO SCH (21:00)
[2024-06-06] MEDS ORDERED: Lactobacil 2-S.Thermo-Bifido 1 1 Cap PO SCH (21:00)
[2024-06-06 22:32] LABS: Bun/Creatinine Ratio 27.9 (12.0-20.0); Creatinine, Blood 1.47 mg/dL (0.40-1.00)
[2024-06-07 00:08] VITALS: BP 109/86
[2024-06-07] MEDS ORDERED: Acetaminophen 325 MG TABLET PO PRN (00:50)
[2024-06-07 04:38] VITALS: BP 106/60
[2024-06-07 06:00] LABS: Hematocrit 30.7 % (33.0-51.0); Hemoglobin 10.3 g/dL (11.5-16.0); Mean Corpuscular HGB 30.8 pg (26.0-34.0); Mean Corpuscular HGB Conc 33.6 g/dL (31.5-36.5); Mean Corpuscular Volume 92 fL (80-100); Mean Platelet Volume 8.9 fL (9.1-12.4); Platelet Count 190 K/mm3 (150-400); RDW Coefficient Variation 14.7 % (11.7-14.2); RDW Standard Deviation 50.1 fL (35.1-46.3); Red Blood Cell Count 3.34 M/mm3 (3.80-5.20); White Blood Cell Count 9.68 K/mm3 (4.00-11.30)
[2024-06-07 06:29] LABS: Calcium, Blood 7.8 mg/dL (8.5-10.1); Creatinine, Blood 1.57 mg/dL (0.40-1.00); Magnesium, Blood 2.8 mg/dL (1.6-2.4)
[2024-06-07] MEDS ORDERED: NS 1,000 ML IV ONE (06:45)
[2024-06-07 06:59] VITALS: BP 100/55
[2024-06-07] MEDS ORDERED: Heparin Sodium 5000 Units/ML 1ML MDV SC SCH (09:00)
[2024-06-07] MEDS ORDERED: Metoprolol Succinate 25 MG TABCR PO SCH (09:00)
[2024-06-07] MEDS ORDERED: Aspirin 81 MG Chew PO SCH (09:00)
[2024-06-07 11:26] VITALS: BP 100/59
[2024-06-07 12:30] LABS: Albumin, Blood 1.2 g/dL (3.4-5.0); Albumin/Globulin Ratio 0.4 (0.8-1.8); Bilirubin, Total 0.4 mg/dL (0.1-1.0); Bun/Creatinine Ratio 28.7 (12.0-20.0); Calcium, Blood 7.4 mg/dL (8.5-10.1); Creatinine, Blood 1.43 mg/dL (0.40-1.00); Globulin, Blood 3.4 g/dL (2.2-4.0); Phosphorus, Blood 3.6 mg/dL (2.5-4.9); Potassium, Blood 3.9 mmol/L (3.5-5.5); Total Protein, Blood 4.6 g/dL (6.4-8.2)
[2024-06-07 15:35] VITALS: BP 102/59
[2024-06-07] MEDS ORDERED: Multivitamins 1 Tab PO SCH (17:20)
[2024-06-07] MEDS ORDERED: Thiamine HCl 100 MG Tab PO SCH (17:20)
[2024-06-07] MEDS ORDERED: Simethicone 80 MG Chew PO PRN (17:50)
[2024-06-07] MEDS ORDERED: CefTRIAXone Sodium 1,000 MG in NS 100 ML IV SCH (18:00)
[2024-06-07 19:31] VITALS: BP 98/58
[2024-06-07] MEDS ORDERED: Arginine/Glutamine/Calcium Hmb 1 Packet PO SCH (21:00)
[2024-06-07] MEDS ORDERED: Mirtazapine 15 MG Tab PO SCH (21:00)
[2024-06-08 00:23] VITALS: BP 123/60
[2024-06-08 04:47] VITALS: BP 107/45
[2024-06-08 05:27] LABS: BASOPHILS ABSOLUTE AUTO 0.04 K/mm3 (0.00-0.23); BASOPHILS PERCENT AUTO 1 % (0-2); Hematocrit 30.2 % (33.0-51.0); Hemoglobin 10.2 g/dL (11.5-16.0); LYMPHOCYTES ABSOLUTE AUTO 0.96 K/mm3 (0.84-5.20); LYMPHOCYTES PERCENT AUTO 11 % (21-46); MONOCYTES ABSOLUTE AUTO 0.48 K/mm3 (0.16-1.47); MONOCYTES PERCENT AUTO 6 % (4-13); Mean Corpuscular HGB 30.8 pg (26.0-34.0); Mean Corpuscular HGB Conc 33.8 g/dL (31.5-36.5); Mean Corpuscular Volume 91 fL (80-100); Mean Platelet Volume 8.9 fL (9.1-12.4); Platelet Count 194 K/mm3 (150-400); RDW Coefficient Variation 14.6 % (11.7-14.2); RDW Standard Deviation 49.1 fL (35.1-46.3); Red Blood Cell Count 3.31 M/mm3 (3.80-5.20); White Blood Cell Count 8.79 K/mm3 (4.00-11.30)
[2024-06-08 05:29] LABS: EOSINOPHILS ABSOLUTE AUTO 0.03 K/mm3 (0.00-0.68); EOSINOPHILS PERCENT AUTO 0 % (0-6); IMMATURE GRAN ABSOLUTE AUTO 0.11 K/mm3 (0.00-0.10); IMMATURE GRAN PERCENT AUTO 1 % (0-1); NEUTROPHILS ABSOLUTE AUTO 7.17 K/mm3 (1.96-9.15); NEUTROPHILS PERCENT AUTO 82 % (41-73)
[2024-06-08 05:48] LABS: BAND PERCENT MAN 18 % (0-8); BASOPHILS PERCENT MAN 0 % (0-2); EOSINOPHILS PERCENT MAN 0 % (0-6); LYMPHOCYTES ABSOLUTE MAN 0.61 K/mm3 (0.84-5.20); LYMPHOCYTES PERCENT MAN 7 % (21-46); MONOCYTES ABSOLUTE MAN 0.35 K/mm3 (0.16-1.47); MONOCYTES PERCENT MAN 4 % (4-13); NEUTROPHILS ABSOLUTE MAN 7.82 K/mm3 (1.96-9.15); SEG NEUTROPHILS PERCENT MAN 71 % (41-73); TOTAL CELLS COUNTED 100
[2024-06-08 05:49] LABS: Albumin, Blood 1.2 g/dL (3.4-5.0); Albumin/Globulin Ratio 0.3 (0.8-1.8); Bilirubin, Total 0.3 mg/dL (0.1-1.0); Bun/Creatinine Ratio 39.9 (12.0-20.0); Calcium, Blood 7.6 mg/dL (8.5-10.1); Creatinine, Blood 0.98 mg/dL (0.40-1.00); Globulin, Blood 3.5 g/dL (2.2-4.0); Phosphorus, Blood 2.3 mg/dL (2.5-4.9); Potassium, Blood 3.5 mmol/L (3.5-5.5); Total Protein, Blood 4.7 g/dL (6.4-8.2)
[2024-06-08 06:53] VITALS: BP 112/61
[2024-06-08] MEDS ORDERED: MethylPREDNISolone Sod Succ 125 MG Vial IV SCH (17:00)
[2024-06-08 17:11] VITALS: BP 115/62
[2024-06-08 20:09] VITALS: BP 98/56
[2024-06-08] MEDS ORDERED: Melatonin 5 MG Tablet PO ONE (22:20)
[2024-06-09 01:30] VITALS: BP 113/57
[2024-06-09 05:44] VITALS: BP 117/84
[2024-06-09 06:21] LABS: BASOPHILS ABSOLUTE AUTO 0.02 K/mm3 (0.00-0.23); BASOPHILS PERCENT AUTO 1 % (0-2); EOSINOPHILS PERCENT AUTO 0 % (0-6); Hematocrit 28.5 % (33.0-51.0); Hemoglobin 9.4 g/dL (11.5-16.0); Mean Corpuscular HGB 30.8 pg (26.0-34.0); Mean Corpuscular Volume 93 fL (80-100); Mean Platelet Volume 9.2 fL (9.1-12.4); Platelet Count 183 K/mm3 (150-400); RDW Coefficient Variation 14.7 % (11.7-14.2); RDW Standard Deviation 50.7 fL (35.1-46.3); Red Blood Cell Count 3.05 M/mm3 (3.80-5.20); White Blood Cell Count 3.27 K/mm3 (4.00-11.30)
[2024-06-09 06:26] LABS: IMMATURE GRAN ABSOLUTE AUTO 0.04 K/mm3 (0.00-0.10); IMMATURE GRAN PERCENT AUTO 1 % (0-1); LYMPHOCYTES PERCENT AUTO 15 % (21-46); MONOCYTES ABSOLUTE AUTO 0.05 K/mm3 (0.16-1.47); MONOCYTES PERCENT AUTO 2 % (4-13); NEUTROPHILS ABSOLUTE AUTO 2.66 K/mm3 (1.96-9.15); NEUTROPHILS PERCENT AUTO 81 % (41-73)
[2024-06-09 06:43] LABS: Albumin, Blood 1.2 g/dL (3.4-5.0); Albumin/Globulin Ratio 0.4 (0.8-1.8); Bilirubin, Total 0.2 mg/dL (0.1-1.0); Bun/Creatinine Ratio 32.3 (12.0-20.0); Calcium, Blood 7.6 mg/dL (8.5-10.1); Creatinine, Blood 0.87 mg/dL (0.40-1.00); Globulin, Blood 3.4 g/dL (2.2-4.0); Magnesium, Blood 2.1 mg/dL (1.6-2.4); Phosphorus, Blood 2.8 mg/dL (2.5-4.9); Potassium, Blood 3.9 mmol/L (3.5-5.5); Total Protein, Blood 4.6 g/dL (6.4-8.2)
[2024-06-09 07:33] LABS: BAND PERCENT MAN 1 % (0-8); BASOPHILS PERCENT MAN 0 % (0-2); EOSINOPHILS PERCENT MAN 0 % (0-6); LYMPHOCYTES ABSOLUTE MAN 0.49 K/mm3 (0.84-5.20); LYMPHOCYTES PERCENT MAN 15 % (21-46); MONOCYTES ABSOLUTE MAN 0.06 K/mm3 (0.16-1.47); MONOCYTES PERCENT MAN 2 % (4-13); NEUTROPHILS ABSOLUTE MAN 2.71 K/mm3 (1.96-9.15); SEG NEUTROPHILS PERCENT MAN 82 % (41-73); TOTAL CELLS COUNTED 100
[2024-06-09 10:02] LABS: Adenovirus F 40/41 Not Detected (NOT DETECT); Astrovirus Not Detected (NOT DETECT); Campylobacter Sp Not Detected (NOT DETECT); Cryptosporidium Not Detected (NOT DETECT); Cyclospora Cayetanensis Not Detected (NOT DETECT); E. Coli O157 Not Detected (NOT DETECT); Entamoeba Histolytica Not Detected (NOT DETECT); Enteroaggregative E. coli-EAEC Not Detected (NOT DETECT); Enteropathogenic E. coli-EPEC Not Detected (NOT DETECT); Enterotoxigenic E. coli-ETEC Not Detected (NOT DETECT); Giardia Lamblia Not Detected (NOT DETECT); Norovirus GI/GII Not Detected (NOT DETECT); Plesiomonas Shigelloides Not Detected (NOT DETECT); Rotavirus A Not Detected (NOT DETECT); Salmonella Sp Not Detected (NOT DETECT); Sapovirus Not Detected (NOT DETECT); Shiga Toxin-prod E. coli-STEC Not Detected (NOT DETECT); Shigella/Enteroin E. coli-EIEC Not Detected (NOT DETECT); Vibrio Cholerae Not Detected (NOT DETECT); Vibrio Sp Not Detected (NOT DETECT); Yersinia Enterocolitica Not Detected (NOT DETECT)
[2024-06-09] MEDS ORDERED: Metoprolol Tartrate 1 MG/ML 5 ML VIAL IV ONE (10:25)
[2024-06-09 12:18] VITALS: BP 104/61
[2024-06-09 16:22] VITALS: BP 114/68
[2024-06-09] MEDS ORDERED: NS 250 ML IV PRN (17:40)
[2024-06-09 20:05] VITALS: BP 161/74
[2024-06-09 23:38] VITALS: BP 103/60
[2024-06-10 06:03] VITALS: BP 119/62
[2024-06-10 07:10] LABS: Hematocrit 26.3 % (33.0-51.0); Hemoglobin 8.8 g/dL (11.5-16.0); Mean Corpuscular HGB 31.1 pg (26.0-34.0); Mean Corpuscular HGB Conc 33.5 g/dL (31.5-36.5); Mean Corpuscular Volume 93 fL (80-100); Platelet Count 187 K/mm3 (150-400); RDW Coefficient Variation 14.6 % (11.7-14.2); RDW Standard Deviation 49.7 fL (35.1-46.3); Red Blood Cell Count 2.83 M/mm3 (3.80-5.20); White Blood Cell Count 4.95 K/mm3 (4.00-11.30)
[2024-06-10 07:31] VITALS: BP 121/56
[2024-06-10 07:35] LABS: Albumin, Blood 1.3 g/dL (3.4-5.0); Albumin/Globulin Ratio 0.4 (0.8-1.8); Bilirubin, Total 0.1 mg/dL (0.1-1.0); Bun/Creatinine Ratio 45.7 (12.0-20.0); Calcium, Blood 7.7 mg/dL (8.5-10.1); Creatinine, Blood 0.85 mg/dL (0.40-1.00); Globulin, Blood 3.4 g/dL (2.2-4.0); Potassium, Blood 4.7 mmol/L (3.5-5.5); Total Protein, Blood 4.7 g/dL (6.4-8.2)
[2024-06-10 07:39] LABS: BASOPHILS PERCENT MAN 0 % (0-2); EOSINOPHILS PERCENT MAN 0 % (0-6); LYMPHOCYTES ABSOLUTE MAN 0.54 K/mm3 (0.84-5.20); LYMPHOCYTES PERCENT MAN 11 % (21-46); MONOCYTES ABSOLUTE MAN 0.14 K/mm3 (0.16-1.47); MONOCYTES PERCENT MAN 3 % (4-13); NEUTROPHILS ABSOLUTE MAN 4.25 K/mm3 (1.96-9.15); SEG NEUTROPHILS PERCENT MAN 86 % (41-73); TOTAL CELLS COUNTED 100
[2024-06-10 11:33] VITALS: BP 113/63
[2024-06-10 16:16] VITALS: BP 124/69
[2024-06-10 19:46] VITALS: BP 145/71
[2024-06-10 23:54] VITALS: BP 130/69
[2024-06-11 03:41] VITALS: BP 147/84
[2024-06-11 05:59] LABS: Hematocrit 28.4 % (33.0-51.0); Hemoglobin 9.1 g/dL (11.5-16.0); Mean Corpuscular HGB 30.4 pg (26.0-34.0); Mean Corpuscular Volume 95 fL (80-100); Mean Platelet Volume 8.9 fL (9.1-12.4); Platelet Count 172 K/mm3 (150-400); RDW Coefficient Variation 14.7 % (11.7-14.2); RDW Standard Deviation 51.3 fL (35.1-46.3); Red Blood Cell Count 2.99 M/mm3 (3.80-5.20); White Blood Cell Count 6.14 K/mm3 (4.00-11.30)
[2024-06-11 06:30] LABS: Albumin, Blood 1.5 g/dL (3.4-5.0); Albumin/Globulin Ratio 0.4 (0.8-1.8); Bilirubin, Total 0.2 mg/dL (0.1-1.0); Bun/Creatinine Ratio 59.3 (12.0-20.0); Calcium, Blood 8.1 mg/dL (8.5-10.1); Creatinine, Blood 0.79 mg/dL (0.40-1.00); Globulin, Blood 3.4 g/dL (2.2-4.0); Total Protein, Blood 4.9 g/dL (6.4-8.2)
[2024-06-11 06:33] LABS: BASOPHILS PERCENT MAN 0 % (0-2); EOSINOPHILS PERCENT MAN 0 % (0-6); LYMPHOCYTES ABSOLUTE MAN 0.61 K/mm3 (0.84-5.20); LYMPHOCYTES PERCENT MAN 10 % (21-46); METAMYELOCYTE ABSOLUTE MAN 0.06 K/mm3 (0.00-0.00); METAMYELOCYTE PERCENT MAN 1 % (0-0); MONOCYTES PERCENT MAN 5 % (4-13); MYELOCYTE ABSOLUTE MAN 0.06 K/mm3 (0.00-0.00); MYELOCYTE PERCENT MAN 1 % (0-0); NEUTROPHILS ABSOLUTE MAN 5.09 K/mm3 (1.96-9.15); SEG NEUTROPHILS PERCENT MAN 83 % (41-73); TOTAL CELLS COUNTED 100
[2024-06-11 07:33] VITALS: BP 152/69
[2024-06-11 15:55] VITALS: BP 126/65
[2024-06-11 19:49] VITALS: BP 168/76
[2024-06-11] MEDS ORDERED: Ondansetron HCl 2 MG / ML 2ML Vial IV PRN (22:25)
[2024-06-12 00:45] VITALS: BP 139/78
[2024-06-12 04:29] VITALS: BP 141/76
[2024-06-12 06:08] LABS: Hemoglobin 9.1 g/dL (11.5-16.0); Mean Corpuscular HGB 30.6 pg (26.0-34.0); Mean Corpuscular HGB Conc 32.5 g/dL (31.5-36.5); Mean Corpuscular Volume 94 fL (80-100); Mean Platelet Volume 8.7 fL (9.1-12.4); NRBC ABSOLUTE 0.02 K/mm3 (0.00-0.02); NRBC Auto 0.2 /100 WBC (0.0-0.2); Platelet Count 178 K/mm3 (150-400); RDW Coefficient Variation 14.9 % (11.7-14.2); RDW Standard Deviation 51.1 fL (35.1-46.3); Red Blood Cell Count 2.97 M/mm3 (3.80-5.20); White Blood Cell Count 10.21 K/mm3 (4.00-11.30)
[2024-06-12 06:54] LABS: Albumin, Blood 1.5 g/dL (3.4-5.0); Albumin/Globulin Ratio 0.5 (0.8-1.8); Bilirubin, Total 0.4 mg/dL (0.1-1.0); Creatinine, Blood 0.82 mg/dL (0.40-1.00); Globulin, Blood 3.3 g/dL (2.2-4.0); Potassium, Blood 4.8 mmol/L (3.5-5.5); Total Protein, Blood 4.8 g/dL (6.4-8.2)
[2024-06-12 09:02] VITALS: BP 141/84
[2024-06-12 11:15] LABS: BAND PERCENT MAN 5 % (0-8); BASOPHILS PERCENT MAN 0 % (0-2); EOSINOPHILS PERCENT MAN 0 % (0-6); LYMPHOCYTES ABSOLUTE MAN 1.22 K/mm3 (0.84-5.20); LYMPHOCYTES PERCENT MAN 12 % (21-46); METAMYELOCYTE PERCENT MAN 2 % (0-0); MONOCYTES PERCENT MAN 4 % (4-13); MYELOCYTE ABSOLUTE MAN 0.81 K/mm3 (0.00-0.00); MYELOCYTE PERCENT MAN 8 % (0-0); NEUTROPHILS ABSOLUTE MAN 7.55 K/mm3 (1.96-9.15); SEG NEUTROPHILS PERCENT MAN 69 % (41-73); TOTAL CELLS COUNTED 100
[2024-06-12 15:27] VITALS: BP 128/61
[2024-06-12 19:53] VITALS: BP 111/60
[2024-06-12] MEDS ORDERED: Banana Flakes/Tos 1 EA Powder Pack PO SCH (21:00)
[2024-06-12 23:58] VITALS: BP 126/58
[2024-06-13 05:01] VITALS: BP 122/69
[2024-06-13 08:11] VITALS: BP 124/59
[2024-06-13 11:59] VITALS: BP 107/53
[2024-06-13] MEDS ORDERED: NS 500 ML IV SCH (15:00)
[2024-06-13 16:00] VITALS: BP 99/44
[2024-06-13 19:30] VITALS: BP 122/56
[2024-06-13 23:33] VITALS: BP 118/61
[2024-06-14 03:03] VITALS: BP 126/76
[2024-06-14 07:03] VITALS: BP 127/69
[2024-06-14 11:58] VITALS: BP 112/53
[2024-06-14 19:37] VITALS: BP 125/72
[2024-06-15 03:19] VITALS: BP 148/85
[2024-06-15 07:28] VITALS: BP 115/62
[2024-06-15] MEDS ORDERED: Morphine Sulfate 4 MG/1 ML Injection IV ONE (10:00)
[2024-06-15] MEDS ORDERED: Acetaminophen650 M1 PO (13:45)
[2024-06-15] MEDS ORDERED: JUVEN PACKET1 EAC3 PO (13:45)
[2024-06-15] MEDS ORDERED: ORTIKOS9 M1 PO (13:46)
[2024-06-15] MEDS ORDERED: BANATROL PLUS1 EAC1 PO (13:46)
[2024-06-15] MEDS ORDERED: IMODIUM A-D2 M3 PO (13:47)
[2024-06-15] MEDS ORDERED: MULVITA PO (13:48)
[2024-06-15] MEDS ORDERED: MIRT15 PO (13:48)
[2024-06-15] MEDS ORDERED: ONDA4 PO (13:49)
[2024-06-15] MEDS ORDERED: SIME80CH PO (13:49)
[2024-06-15] MEDS ORDERED: B-1100 M1 PO (13:50)
[2024-06-15 16:05] VITALS: BP 95/49
== END 2024-06-15 16:43 | DRG 682 ==
LOC: ER 15:08 → ERHOLD 17:57 → MEDS 17:57
PROVIDERS: Family Medicine; Internal Medicine; Nurse Practitioner Acute Care; Student in an Organized Health Care Education/Training Program; ADMIT Student in an Organized Health Care Education/Training Program
DX: N17.9 Acute kidney failure, unspecified (principal); E43 Unspecified severe protein-calorie malnutrition; G92.8 Other toxic encephalopathy; I48.21 Permanent atrial fibrillation; N30.00 Acute cystitis without hematuria; I48.92 Unspecified atrial flutter; E87.1 Hypo-osmolality and hyponatremia; K50.913 Crohn's disease, unspecified, with fistula; E83.51 Hypocalcemia; E83.42 Hypomagnesemia; K60.30 Anal fistula, unspecified; E86.0 Dehydration; T36.1X5A Adverse effect of cephalosporins and other beta-lactam antibiotics, initial encounter; E78.5 Hyperlipidemia, unspecified; Z66 Do not resuscitate; Z90.49 Acquired absence of other specified parts of digestive tract; Z88.5 Allergy status to narcotic agent; Z98.890 Other specified postprocedural states; Z79.82 Long term (current) use of aspirin; Z79.899 Other long term (current) drug therapy; Z68.28 Body mass index [BMI] 28.0-28.9, adult
CPT/HCPCS: 0241U; 36415; 70450; 71045; 72170; 73610; 80048; 80053; 81001; 82550; 82947; 83735; 84100; 85025; 85027; 85610; 85651; 85730; 86141; 87077; 87086; 87186; 87507; 93005; 93010; 93971; 96374; 96375; 97110; 97110-CQ; 97116; 97116-CQ; 97162; 97530; 99285-25; A9270; J0696; J1644; J2270; J2405; J2919; J7030; J7050; J7120

== ENCOUNTER 2024-07-12 03:09 | Day surgery (SDC) | payer MEDICARE ==
[~2024-07-12] VITALS: Wt 66.7 kg
[~2024-07-12 03:09] MED LIST changes: +Acetaminophen650 M1 PO; +B-1100 M1 PO; +BANATROL PLUS1 EAC1 PO; +IMODIUM A-D2 M3 PO; +JUVEN PACKET1 EAC3 PO; +MIRT15 PO; +MULVITA PO; +ONDA4 PO; +ORTIKOS9 M1 PO; +SIME80CH PO
[2024-07-12] MEDS ORDERED: Acetaminophen 325 MG TABLET PO SCH (06:55)
[2024-07-12] MEDS ORDERED: DiphenhydrAMINE HCL 25 MG Cap PO SCH (06:55)
[2024-07-12 15:03] VITALS: BP 90/58
[2024-07-12] MEDS ORDERED: Infliximab-DYYB 300 MG in NS 250 ML IV SCH (15:15)
[2024-07-12] MEDS ORDERED: INFLECTRA100 MG IV (15:22)
[2024-07-12 15:50] VITALS: BP 90/55
[2024-07-12 16:05] VITALS: BP 87/46
[2024-07-12 17:15] VITALS: BP 91/53
== END 2024-07-12 17:30 | disposition home or self-care (01) ==
LOC: ATC 03:09
DX: K50.112 Crohn's disease of large intestine with intestinal obstruction (principal); Z79.82 Long term (current) use of aspirin; Z88.5 Allergy status to narcotic agent
CPT/HCPCS: 96413; 96415; A9270; J7050; Q5103

== ENCOUNTER 2024-07-28 03:15 | Day surgery (SDC) | payer MEDICARE ==
[~2024-07-28] VITALS: Wt 64.9 kg
[~2024-07-28 03:15] MED LIST changes: +INFLECTRA100 MG IV
[2024-07-28] MEDS ORDERED: Acetaminophen 325 MG TABLET PO SCH (06:45)
[2024-07-28] MEDS ORDERED: DiphenhydrAMINE HCL 25 MG Cap PO SCH (06:45)
[2024-07-28 14:15] VITALS: BP 96/74
--- NOTE | 2024-07-28 15:47 | NUR ---
Pt arrived at 1415 today. Pt's dtr dropped her off this afternoon. Lucy reports she is weak and dizzy and was barely able to stand on scale. When she got up to scale her RR increased greatly. Brought pt back to room 2. Pt reports SOB, dizziness and weakness. She states she has not felt well in at least a week. BP=96/74, RU=992, RR=42/min, O2 sat=94% on RA, T=96.5. HR is irregular, pt reports history of a-fib and has had swelling in extremeties that comes and goes. She has whole body shakes. She reports that if she sits quietly for a little while the symptoms resolve. Pt reports she last saw her PCP two weeks ago. Pt reports since February she has not had any appetite or energy. Will hold inflectra as pt has unstable vital signs and appears ill. Color is pale. Called pt's dtr and she returned. Pt's dtr will take pt to the ER for evaluation. Pt left [facility] [place] WC accompanited by her dtr at 1508. Report called to Marvin MARTE in the ER.
== END 2024-07-28 23:00 | disposition home or self-care (01) ==
LOC: ATC 03:15
DX: K50.112 Crohn's disease of large intestine with intestinal obstruction (principal); I10 Essential (primary) hypertension; Z88.5 Allergy status to narcotic agent
CPT/HCPCS: 99211

== ENCOUNTER 2024-07-28 15:13 | Inpatient (IN) | payer MEDICARE ==
[~2024-07-28] VITALS: Ht 160 cm; Wt 69.5 kg
[2024-07-28] MEDS ORDERED: NS 1,000 ML IV SCH (15:30)
[2024-07-28] MEDS ORDERED: Ondansetron HCl 2 MG / ML 2ML Vial ONE (15:50)
[2024-07-28 15:55] LABS: BASOPHILS ABSOLUTE AUTO 0.03 K/mm3 (0.00-0.23); BASOPHILS PERCENT AUTO 0 % (0-2); Mean Corpuscular HGB 29.8 pg (26.0-34.0)
[2024-07-28 16:04] LABS: EOSINOPHILS ABSOLUTE AUTO 0.01 K/mm3 (0.00-0.68); EOSINOPHILS PERCENT AUTO 0 % (0-6); Hematocrit 32.9 % (33.0-51.0); Hemoglobin 10.4 g/dL (11.5-16.0); IMMATURE GRAN ABSOLUTE AUTO 0.18 K/mm3 (0.00-0.10); IMMATURE GRAN PERCENT AUTO 1 % (0-1); LYMPHOCYTES ABSOLUTE AUTO 1.95 K/mm3 (0.84-5.20); LYMPHOCYTES PERCENT AUTO 12 % (21-46); MONOCYTES PERCENT AUTO 5 % (4-13); Mean Corpuscular HGB Conc 31.6 g/dL (31.5-36.5); Mean Corpuscular Volume 94 fL (80-100); NEUTROPHILS ABSOLUTE AUTO 12.84 K/mm3 (1.96-9.15); NEUTROPHILS PERCENT AUTO 82 % (41-73); NRBC ABSOLUTE 0.04 K/mm3 (0.00-0.02); NRBC Auto 0.3 /100 WBC (0.0-0.2); RDW Coefficient Variation 17.3 % (11.7-14.2); RDW Standard Deviation 58.6 fL (35.1-46.3); Red Blood Cell Count 3.49 M/mm3 (3.80-5.20); White Blood Cell Count 15.71 K/mm3 (4.00-11.30)
[2024-07-28 16:25] LABS: Mean Platelet Volume 9.7 fL (9.1-12.4); Platelet Count 145 K/mm3 (150-400)
[2024-07-28 16:44] LABS: Albumin, Blood 1.1 g/dL (3.4-5.0); Albumin/Globulin Ratio 0.3 (0.8-1.8); Bilirubin, Total 0.5 mg/dL (0.1-1.0); Bun/Creatinine Ratio 17.8 (12.0-20.0); Calcium, Blood 7.1 mg/dL (8.5-10.1); Creatinine, Blood 1.07 mg/dL (0.40-1.00); Globulin, Blood 4.3 g/dL (2.2-4.0); Potassium, Blood 3.5 mmol/L (3.5-5.5); Total Protein, Blood 5.4 g/dL (6.4-8.2)
[2024-07-28] MEDS ORDERED: Ampicillin Sod/Sulbactam Sod 3 GM in NS 100 ML IV ONE (20:05)
[2024-07-28] MEDS ORDERED: MetroNIDAZOLE 500MG/NS 100 ml 100 ML IV ONE (20:05)
[2024-07-28 20:55] LABS: BASOPHILS ABSOLUTE AUTO 0.02 K/mm3 (0.00-0.23); BASOPHILS PERCENT AUTO 0 % (0-2); EOSINOPHILS PERCENT AUTO 0 % (0-6); Hematocrit 27.2 % (33.0-51.0); Hemoglobin 8.8 g/dL (11.5-16.0); IMMATURE GRAN ABSOLUTE AUTO 0.08 K/mm3 (0.00-0.10); IMMATURE GRAN PERCENT AUTO 1 % (0-1); LYMPHOCYTES PERCENT AUTO 15 % (21-46); MONOCYTES ABSOLUTE AUTO 0.56 K/mm3 (0.16-1.47); MONOCYTES PERCENT AUTO 6 % (4-13); Mean Corpuscular HGB 30.3 pg (26.0-34.0); Mean Corpuscular HGB Conc 32.4 g/dL (31.5-36.5); Mean Corpuscular Volume 94 fL (80-100); Mean Platelet Volume 9.6 fL (9.1-12.4); NEUTROPHILS ABSOLUTE AUTO 7.23 K/mm3 (1.96-9.15); NEUTROPHILS PERCENT AUTO 78 % (41-73); Platelet Count 127 K/mm3 (150-400); RDW Coefficient Variation 17.2 % (11.7-14.2); RDW Standard Deviation 57.4 fL (35.1-46.3); White Blood Cell Count 9.29 K/mm3 (4.00-11.30)
[2024-07-28 22:09] LABS: Source, Urine Foley catheter
[2024-07-28 22:13] LABS: Bilirubin, Urine Neg (Neg); Blood, Urine 2+ (Neg); Glucose Qualitative, Urine Neg (Neg); Ketones, Urine Neg (Neg); Leukocyte Esterase, Urine 3+ (Neg); Nitrite, Urine Pos (Neg); Protein, Urine 2+ (Neg); Urobilinogen, Urine NORM (Normal)
[2024-07-28 22:14] LABS: Appearance, Urine Hazy (Clear); Color, Urine Yellow (P-Yellow)
[2024-07-28 22:20] LABS: Bacteria Many /hpf; Red Blood Cells, Urine 0-2 /hpf (0-2); Squamous Epithelial Cells Few /hpf (Few); White Blood Cells, Urine TNTC /hpf (0-5)
[2024-07-28] MEDS ORDERED: NS 1,000 ML IV ONE (22:55)
[2024-07-28] MEDS ORDERED: Ondansetron HCl 2 MG / ML 2ML Vial IV PRN (23:00)
[2024-07-28] MEDS ORDERED: Enoxaparin 40 MG/0.4 ML SYR SC SCH (23:00)
[2024-07-28] MEDS ORDERED: Sodium Bicarb 8.4% 1 MEQ/ML 50 ML Vial IV ONE (23:05)
[2024-07-28] MEDS ORDERED: Potassium Chl 20MEQ/Water100ML 100 ML IV STA (23:08)
[2024-07-28] MEDS ORDERED: Albumin (Human) 25gm/100ml 100 ML IV ONE (23:10)
[2024-07-28 23:30] VITALS: BP 115/62
[2024-07-28 23:45] VITALS: BP 109/60
[2024-07-28] MEDS ORDERED: CefTRIAXone Sodium 1,000 MG in NS 100 ML IV SCH (23:47)
[2024-07-29] VITALS (53 sets, daily range): BP systolic 77–121; BP diastolic 50–74
[2024-07-29] MEDS ORDERED: Sodium Bicarb 8.4% 1 MEQ/ML 50 ML Vial IV ONE (01:45)
--- NOTE | 2024-07-29 03:07 | NUR ---
ASSUMPTION OF CARE ASSUMED CARE OF PATIENT AT APPROXEMATELY 2230, PATIENT WAS TRANSFERRED FROM [facility] TO ICU BED VIA SLIDER SHEET. . PT WAS ALERT AND ORIENTED. PT WAS ABLE TO ANSWER QUESTIONS WHEN ASKED. PT PRESENTS WITH SOME GENERALIZED WEAKNESS, HOWEVER IS ABLE TO MOVE ALL EXTREMITIES AND IS ABLE TO ASSIST IN CHANGING POSITIONS. PT IN SINUS RHYTHM HR IN 80'S- 90S. LEVOPHED INFUSING AT 9 MCG/MINUTE TO MAINTAIN MAP >65 PT ON ROOM AIR. OXYGEN SATURATION >95%. 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 MEPILEX WAS CHANGED AND WOUND WAS ASSESSED. PICTURES WERE TAKEN AND UPLOADED TO CHART. DR. VASQUES NOTIFIED OF WOUND PATIENT PRESENTS WITH LIQUID DIARRHEA. ORDERS WERE RECIEVED FOR RECTAL TUBE AND TUBE WAS PLACED. TEMP FOLLEY IN PLACE, PATENT, DRAINING TO GRAVITY. RIGHT SUBCLAVIAN CENTRAL LINE IN PLACE. CENTRAL LINE IS PATENT AND FLUSHES. PIV IN PLACE TO RIGHT FOREARM, SL. BED IN LOWEST POSITION, CALL LIGHT IS WITHIN REACH.
[2024-07-29 04:51] LABS: BASOPHILS ABSOLUTE AUTO 0.01 K/mm3 (0.00-0.23); BASOPHILS PERCENT AUTO 0 % (0-2); EOSINOPHILS PERCENT AUTO 0 % (0-6); Hematocrit 21.6 % (33.0-51.0); Hemoglobin 6.9 g/dL (11.5-16.0); IMMATURE GRAN ABSOLUTE AUTO 0.06 K/mm3 (0.00-0.10); IMMATURE GRAN PERCENT AUTO 1 % (0-1); LYMPHOCYTES PERCENT AUTO 23 % (21-46); MONOCYTES ABSOLUTE AUTO 0.49 K/mm3 (0.16-1.47); MONOCYTES PERCENT AUTO 8 % (4-13); Mean Corpuscular HGB 29.7 pg (26.0-34.0); Mean Corpuscular HGB Conc 31.9 g/dL (31.5-36.5); Mean Corpuscular Volume 93 fL (80-100); Mean Platelet Volume 9.2 fL (9.1-12.4); NEUTROPHILS ABSOLUTE AUTO 4.41 K/mm3 (1.96-9.15); NEUTROPHILS PERCENT AUTO 68 % (41-73); Platelet Count 110 K/mm3 (150-400); RDW Coefficient Variation 17.4 % (11.7-14.2); Red Blood Cell Count 2.32 M/mm3 (3.80-5.20); White Blood Cell Count 6.47 K/mm3 (4.00-11.30)
[2024-07-29 05:11] LABS: Albumin, Blood 1.5 g/dL (3.4-5.0); Albumin/Globulin Ratio 0.6 (0.8-1.8); Bilirubin, Total 0.6 mg/dL (0.1-1.0); Bun/Creatinine Ratio 18.3 (12.0-20.0); Calcium, Blood 7.1 mg/dL (8.5-10.1); Creatinine, Blood 1.04 mg/dL (0.40-1.00); Globulin, Blood 2.7 g/dL (2.2-4.0); Potassium, Blood 3.4 mmol/L (3.5-5.5); Total Protein, Blood 4.2 g/dL (6.4-8.2)
[2024-07-29] MEDS ORDERED: Potassium Chl 20MEQ/Water100ML 100 ML IV ONE (05:45)
--- NOTE | 2024-07-29 06:10 | NUR ---
SHIFT SUMMARY NO ACUTE CHANGES THIS SHIFT. PT CONTINUES TO REST IN BED, SLEEPING BUT AROUSABLE. PT ORIENTED X4, ANSWERS QUESTIONS APPROPRIATELTY, FOLLOWS DIRECTION WHEN PROMPTED AND IS ABLE TO MAKE HER NEEDS KNOWN. PT WEAK BUT MOVES ALL EXTREMITIES EQUALLY BILATERALLY, ASSISTS WITH TURNS. PT HAS GENERALIZED EDEMA. HR 80-90'S SINUS, MAP >65, LEVOPHED ON SB. PT DENIES CP/PRESSURE. PT ON RA, OXYGEN SATURATION >95%. ABDOMEN SOFT, BOWEL TONES HYPOACTIVE. PT HAS HAD MULTIPLE EPISODES ON LIQUID DIARRHEA, ATTEMPTED RECTAL TUBE WITHOUT SUCCESS. PT HAS ANAL FISTULA/PRESSURE WOUND TO COCCYX. MEPILEX IN PLACE, PROVIDER AWARE. TEMP GUIDO IN PLACE PATENT DRAINING YELLOW URINE TO GRAVITY. CENTRAL LINE IN PLACE TO RIGHT SUBCLAVIAN, NS INFUSING AT 75MLS/HR. PIV IN PLACE TO RFA SL. BED IN LOWEST POSITION, CALL LIGHT WITHIN REACH, CARE CONTINUES.
--- NOTE | 2024-07-29 06:16 | NUR ---
PROVIDER WOUND NOTIFICATION DR. VASQUES INFORMED OF PT PRESSURE ULCER/ANAL FISTULA TO COCCYX. MEPILEX IN PLACE, PICTURES IN CHART. CARE CONTINUES.
--- NOTE | 2024-07-29 07:00 | NUR ---
ASSUME CARE: I have assumed care of this patient.
[2024-07-29] MEDS ORDERED: NS 500 ML IV SCH (12:10)
--- NOTE | 2024-07-29 18:54 | NUR ---
SHIFT SUMMARY: Lucy recieved one unit of PRBCs today. She frequently has stool drain from rectum and fistula when repositioning. Surgery was consulted and saw pt as bedside. Pt tolerated cardiac diet for lunch and clear liquid for dinner. She was up in chair for dinner. She denies pain. Pt's daughter was at bedside for short time this morning and brought some belongings for pt, including cell phone and glasses.
--- NOTE | 2024-07-29 20:07 | NUR ---
ASSUMPTION OF CARE ASSUMED CARE OF PATIENT AT APPROXIMATELY 1900, BEDSIDE SHIFT REPORT RECEIVED FROM LUIS E RN. PT RESTING IN BED, SLEEPING BUT AROUSABLE. PT ORIENTED X4, ANSWERS QUESTIONS APPROPRIATELY, FOLLOWS DIRECTION WHEN PROMPTED AND IS ABLE TO MAKE HER NEEDS KNOWN. PT MOVES EXTREMITIES EQUALLY BILATERALLY, ASSISTS WITH TURNS. PT DENIES PAIN ON ASSESSMENT. HR 80-90'S SINUS, MAP >65, PT DENIES CP/PRESSURE. PT ON RA, OXYGEN SATURATION >95%. ABDOMEN SOFT, BOWEL TONES ACTIVE THROUGHOUT. PT DENIES N/V. TEMP GUIDO IN PLACE PATENT DRAINING YELLOW URINE TO GRAVITY. PT EXPERIENCING LIQUID STOOL. STAGE 3 PRESSURE WOUND TO COCCYX NOTED AND ASSESSED. PIV IN PLACE TO RFA SL. CENTRAL LINE IN PLACE TO RIGHT SUBCLAVIAN SL. BED IN LOWEST POSITION, CALL LIGHT WITHIN REACH, CARE CONTINUES.
[2024-07-29] MEDS ORDERED: Lactobacil 2-S.Thermo-Bifido 1 1 Cap PO SCH (21:00)
[2024-07-30] VITALS (11 sets, daily range): BP systolic 94–110; BP diastolic 52–64
--- NOTE | 2024-07-30 00:16 | NUR ---
PT UPDATE CALLED AND SPOKE WITH HOSPITALIST REGARDING PT DECREASED URINARY OUTPUT. NO NEW ORDERS AT THIS TIME. CARE CONTINUES.
[2024-07-30 00:34] LABS: Hematocrit 25.8 % (33.0-51.0); Hemoglobin 8.4 g/dL (11.5-16.0)
[2024-07-30 03:56] LABS: BASOPHILS ABSOLUTE AUTO 0.01 K/mm3 (0.00-0.23); BASOPHILS PERCENT AUTO 0 % (0-2); EOSINOPHILS ABSOLUTE AUTO 0.02 K/mm3 (0.00-0.68); EOSINOPHILS PERCENT AUTO 1 % (0-6); Hematocrit 24.6 % (33.0-51.0); Hemoglobin 7.9 g/dL (11.5-16.0); IMMATURE GRAN ABSOLUTE AUTO 0.03 K/mm3 (0.00-0.10); IMMATURE GRAN PERCENT AUTO 1 % (0-1); LYMPHOCYTES ABSOLUTE AUTO 1.29 K/mm3 (0.84-5.20); LYMPHOCYTES PERCENT AUTO 33 % (21-46); MONOCYTES ABSOLUTE AUTO 0.32 K/mm3 (0.16-1.47); MONOCYTES PERCENT AUTO 8 % (4-13); Mean Corpuscular HGB 29.2 pg (26.0-34.0); Mean Corpuscular HGB Conc 32.1 g/dL (31.5-36.5); Mean Corpuscular Volume 91 fL (80-100); Mean Platelet Volume 9.7 fL (9.1-12.4); NEUTROPHILS ABSOLUTE AUTO 2.26 K/mm3 (1.96-9.15); NEUTROPHILS PERCENT AUTO 58 % (41-73); Platelet Count 104 K/mm3 (150-400); RDW Coefficient Variation 17.8 % (11.7-14.2); RDW Standard Deviation 58.1 fL (35.1-46.3); Red Blood Cell Count 2.71 M/mm3 (3.80-5.20); White Blood Cell Count 3.93 K/mm3 (4.00-11.30)
[2024-07-30 04:39] LABS: Calcium, Blood 6.8 mg/dL (8.5-10.1); Creatinine, Blood 0.78 mg/dL (0.40-1.00); Percent Saturation 49.2 % (15.0-50.0); Potassium, Blood 3.2 mmol/L (3.5-5.5)
[2024-07-30] MEDS ORDERED: Potassium Chloride 40 MEQ in NS 250 ML IV ONE (04:55)
[2024-07-30 05:03] LABS: Magnesium, Blood 1.8 mg/dL (1.6-2.4)
--- NOTE | 2024-07-30 05:40 | NUR ---
SHIFT SUMMARY NO ACUTE CHNAGES THIS SHIFT. PT CONTINUES TO REST IN BED, SLEEPING BUT AROUSABLE. PT ORIENTED X4, ANSWERS QUESTIONS APPROPRIATELY, FOLLOWS DIRECTION WHEN PTOMPTED AND IS ABLE TO MAKE HER NEEDS KNOWN. PT MOVES EXTREMITIES EQUALLY BILATERALLY, ASSISTS WITH TURNS. HR 80-90'S SINUS, MAP >65. PT DENIES CP/PRESSURE. PT PLACED ON 2LPM VIA NC WHILE SLEEPING, OXYGEN SATURATION >95%. ABDOMEN SOFT, BOWEL TONES ACTIVE THROUGHOUT, PT HAVING MULTIPLE LIQUID BROWN STOOLS THIS SHIFT. TEMP GUIDO IN PLACE PATENT DRAINING MINIMAL URINE, PROVIDER AWARE. PRESSURE WOUND/ANAL FISTULA UNCHANGED. PIV IN PLACE TO RFA SL. CENTRAL LINE IN PLACE TO RIGHT SUBCLAVIAN SL. BED IN LOWEST POSITION, CALL LIGHT WITHIN REACH, CARE CONTINUES.
--- NOTE | 2024-07-30 14:14 | NUR ---
PALLIATIVE CARE VISIT: MET WITH PT IN HER ROOM. PT IS ALERT AND ORIENTED AND ABLE TO HAVE MEANINGFUL DISCUSSION. DISCUSSED GOALS OF CARE WITH PT. PT STATES SHE HAS COLITIS AND SHE IS SUPPOSED TO GET INFUSIONS DONE HERE WEEKLY. PT STATES SHE WAS TOO WEAK TO COME FOR HER INFUSION THIS LAST WEEK AND SHE ENDED UP COMING TO THE HOSPITAL AND BEING ADMITTED. PT HAS GOAL TO GET STRONGER SO SHE CAN MAKE IT TO HER INFUSIONS. PT STATES SHE WANTS TO GET BETTER AND IF SHE NEEDED TO COME BACK TO THE HOSPITAL FOR TREATMENT SHE WOULD. PT STATES SHE LIVES WITH HER DAUGHTER RIGHT NOW. HER DAUGHTER IS SUPPOSED TO LEAVE ON A TRIP TOMORROW AND HER SON WILL BE STAYING WITH HER AT NIGHT TO TAKE CARE OF HER. PT IS CONCERNED SHE WILL NOT BE ABLE TO CARE FOR HERSELF DURING THE DAYTIME DUE TO HER WEAKNESS. PT WAS RECENTLY AT [facility] FOR PT/OT. PT STATES SHE DOES NOT WANT TO GO BACK TO REHAB BUT WOULD RATHER GO HOME. ATTEMPTED TO CALL BETH ROSALES AT [phone]. LEFT A MESSAGE REQUESTING A RETURN CALL. SPOKE TO DR. BOLTON AFTER MEETING WITH PT. PER DR. BOLTON, SHE WILL HAVE DISCUSSION ABOUT HOSPICE SERVICES WITH PT.
--- NOTE | 2024-07-30 18:22 | NUR ---
IN TO EXPLAIN TO PT THAT THERE IS NO FIX FOR HER PROBLEMS, WE CAN TREAT. NPO AT MIDNIGHT FOR IVC FILTER FOR RLE CLOTS. HOSPICE MENTIONED, PT STATED SHE WASN'T READY TO GIVE UP YET. FAMILY STATES SHE HAS ALREADY GIVEN UP. WILL CONTINUE TO SPEAK WITH PT ABOUT COMFORT MEASURES. BLADDER TRAINING STARTED WITH FLOEY CLAMPED.
--- NOTE | 2024-07-30 20:46 | NUR ---
ASSUMPTION OF CARE ASSUMED CARE OF PATIENT AT 1900, BEDSIDE SHIFT REPORT RECEIVED FROM LUIS E RN. PT RESTING IN BED, ALERT AND ORIENTED X4. PT ANSWERS QUESTIONS APPROPRIATELY, FOLLOWS DIRECTION WHEN PROMPTED AND IS ABLE TO MAKE HER NEEDS KNOWN. PT MOVES EXTREMITIES EQUALLY BILATERALLY, ASSITS WITH REPOSITIONING. HR 80-100'S SINUS, MAP >65, PT DENIES CP/PRESSURE. PT ON RA, OXYGEN SATURATION >92%. ABDOMEN SOFT, BOWEL TONES ACTIVE THROUGHOUT. PT COMPLAINING OF PAIN IN HER ABDOMEN. PT EXPERIENCING LIQUID DIARRHEA. TEMP GUIDO IN PLACE PATENT DRAINING MINIMAL URINE TO GRAVITY. PIV IN PLACE TO RFA. CENTRAL LINE REMOVED ON PREVIOUS SHIFT, SMALL AMOUNT OF OLD OOZING NOTED TO BANDAGE, NO HEMATOMA FORMATION NOTED. PERIANAL WOUND NOTED. BED IN LOWEST POSITION, CALL LIGHT WITHIN REACH, CARE CONTINUES.
[2024-07-30] MEDS ORDERED: Flecainide Acetate 100 MG Tab PO SCH (21:00)
[2024-07-31] VITALS (7 sets, daily range): BP systolic 111–131; BP diastolic 66–79
--- NOTE | 2024-07-31 00:53 | NUR ---
TRANSFER TO MEDICAL FLOOR PT TRANSFERED TO MEDICAL FLOOR VIA WHEELCHAIR. PT REMAIND ALERT AND ORIENTED, TRANSFERED TO MEDICAL FLOOR BED WITH MINIMAL ASSISTANCE AND WALKER. ALL BELONGINGS TRANSFERD WITH PT.
--- NOTE | 2024-07-31 00:58 | NUR ---
PT TRANSFERED FROM ICU. A&OX4, STANDBY ASSIST WITH FWW. MODERATE EDEMA NOTED TO POSTERIOR UPPER EXTREMITIES AND NONPITTING TO BLE. PT ORIENTED TO , CALL LIGHT WITHIN REACH. GUIDO ON PLACE RAINING CLEAR YELLOW URINE.
[2024-07-31 04:50] LABS: BASOPHILS ABSOLUTE AUTO 0.01 K/mm3 (0.00-0.23); BASOPHILS PERCENT AUTO 0 % (0-2); EOSINOPHILS ABSOLUTE AUTO 0.03 K/mm3 (0.00-0.68); EOSINOPHILS PERCENT AUTO 0 % (0-6); Hematocrit 30.5 % (33.0-51.0); Hemoglobin 9.8 g/dL (11.5-16.0); IMMATURE GRAN ABSOLUTE AUTO 0.06 K/mm3 (0.00-0.10); IMMATURE GRAN PERCENT AUTO 1 % (0-1); LYMPHOCYTES ABSOLUTE AUTO 2.29 K/mm3 (0.84-5.20); LYMPHOCYTES PERCENT AUTO 32 % (21-46); MONOCYTES ABSOLUTE AUTO 0.45 K/mm3 (0.16-1.47); MONOCYTES PERCENT AUTO 6 % (4-13); Mean Corpuscular HGB 29.2 pg (26.0-34.0); Mean Corpuscular HGB Conc 32.1 g/dL (31.5-36.5); Mean Corpuscular Volume 91 fL (80-100); Mean Platelet Volume 9.7 fL (9.1-12.4); NEUTROPHILS ABSOLUTE AUTO 4.32 K/mm3 (1.96-9.15); NEUTROPHILS PERCENT AUTO 60 % (41-73); Platelet Count 104 K/mm3 (150-400); RDW Coefficient Variation 17.7 % (11.7-14.2); RDW Standard Deviation 57.8 fL (35.1-46.3); Red Blood Cell Count 3.36 M/mm3 (3.80-5.20); White Blood Cell Count 7.16 K/mm3 (4.00-11.30)
[2024-07-31 05:19] LABS: Bun/Creatinine Ratio 15.7 (12.0-20.0); Calcium, Blood 6.5 mg/dL (8.5-10.1); Creatinine, Blood 0.76 mg/dL (0.40-1.00); Potassium, Blood 3.7 mmol/L (3.5-5.5); Thyroid Stimulating Hormone 5.39 uIU/mL (0.360-4.800)
--- NOTE | 2024-07-31 05:47 | NUR ---
PT A&OX4, SCD IN PLACE ON LLE, GUIDO PATENT AND INTACT DRAINING CLEAR YELLOW URINE. PT HAD ONE LOOSE STOOL AND WAS INCONTINENT. WOUND ON COCCYX IS CLEAN, DRY AND COVERED BY ATTENDS. PT DENIES PAIN OR NEEDS. TELE IN PLACE RUNNING SR.
[2024-07-31] MEDS ORDERED: Metoprolol Succinate 25 MG TABCR PO SCH (09:00)
[2024-07-31] MEDS ORDERED: NS 500 ML IV ONE ×2 (11:01→11:03)
[2024-07-31] MEDS ORDERED: Heparin Sodium 1000 Units/ML 10ML MDV ONE (11:03)
--- NOTE | 2024-07-31 18:39 | NUR ---
PALLIATIVE CARE VISIT: MET WITH PT AND SON GEORGE IN PT ROOM. PT IS ABLE TO HAVE MEANINGFUL DISCUSSION AND IS ABLE TO MAKE DECISIONS. EDUCATED PT/SON ON HER ILLNESS CURRENT ILLNESS AND BLOOD CLOT AND WHAT IVC FILTER IS AND PURPOSE FOR. EDUCATED ON CONTRAINDICATIONS FOR BLOOD THINNER TO TREAT BLOOD CLOT. DISCUSSED HOSPICE SERVICES WITH PT AND SON. EDUCATED ON HOSPICE BENEFITS, SERVICES PROVIDED. SON WAS TEARFUL WITH DISCUSSION BUT STATED HE HAS A BETTER UNDERSTANDING. PT STATES HER SPOUSE WAS ON HOSPICE AT A CARE FACILITY FOR DEMENTIA AND SO SHE UNDERSTOOD A LITTLE OF WHAT WAS PROVIDED BUT SHE ALSO THOUGHT THEY PROVIDE CAREGIVER ASSISTANCE TO MAKE MEALS AND CLEAN HOUSE ALSO. PT STATES SHE LIVES WITH HER DAUGHTER WHO WORKS DIRECTOR SUPPLY AND HAS A JOB SHE HAS TO TRAVEL WITH. SHE IS UNABLE TO PROVIDE DIRECTOR SUPPLY CARE NEEDS FOR HER MOM AND THAT IS WHAT SHE FEELS SHE NEEDS. HER SON GEORGE STATES HE IS ABLE TO HELP FROM ABOUT 4 PM TO MORNING BUT HIS MOM WOULD BE HOME ALONE MOST OF THE DAY. PT EXPLAINED SHE IS NOT READY FOR HOSPICE AND WANTS TO TRY TO GET STRONGER SO SHE CAN GO TO TREATMENT FOR HER CROHN'S DISEASE. SHE WANTS TO DO PT/OT AND SHE STATES SHE WILL TRY HARDER AT HOME. PT STATES SHE DOES NOT WANT TO GO BACK TO THE MEDICAL CENTER, SHE WAS JUST THERE AND DOES NOT WANT TO GO BACK. PT WAS TO START HOME HEALTH SERVICES WITH [facility] AND SHE IS AGREEABLE TO CONTINUING HOME HEALTH. SPOKE TO BETH ROSALES ON THE PHONE ABOUT DONYA'S CHOICES FOR HOME HEALTH AND ALSO EXPLAINED HOSPICE RECOMMENDATION AND WHAT SERVICES ARE PROVIDED. CONNIE BROUGHT UP THE SAME CONCERNS THAT HER MOM IS ALONE MOST OF THE DAY. ADVISED DAUGHTER CARE MANAGEMENT SERVICES ASSIST WITH DISCHARGE PLANNING.
--- NOTE | 2024-07-31 18:46 | NUR ---
SHIFT SUMMARY PT IVC FILTER PLACED TODAY.. PT WAS NPO PRIOR TO PROCEDURE. POST OP VITALS STARTED. VSS. PT A&OX4. PT ADMITTED DUE TO AFIB W RVR. PT ON TELE, NO TELE REPORTS REPORTED. PT REPORTS NO SOB/PAIN OR CHEST DISCOMFORT. PT HAS WOUND ON COCCYX, PIC IN CHART, REPORTED TO DR. CHAPARRO, CLARIFIED IF FOAM DRESSING IS ADEQUATE FOR CARE FOR WOUND, NO NEW ORDERS AT THIS TIME. APPLIED MEPILEX ON COCCYX, CHANGED PRN. DR. CHAPARRO ORDERED ADVANCED DIET TOLERATED, PT TOLERATING CLEAR LIQUIDS. PT INC OF STOOL, BRIEF IN PLACE, CHANGED PRN. PT HAS GUIDO, GUIDO DRAINING WITH NO DEPENDENT LOOPS. ECHO COMPLETED TODAY. PALLIATIVE CARE TALKED W PT. PT IN BED. BED IN LOWEST POSITION, CALL LIGHT IN REACH.
[2024-08-01 01:03] VITALS: BP 88/53
--- NOTE | 2024-08-01 01:18 | NUR ---
PT BP WAS TAKEN ON FA IT WAS RETAKEN ON UPPER LEFT ARM TO ENSURE ACCURACY. BP WAS WNL. PT HAS EDEMA IN FA CAUSING INNACCURATE BP
[2024-08-01 03:45] VITALS: BP 106/61
--- NOTE | 2024-08-01 05:35 | NUR ---
PT HAD LOOSE MUCUS STOOL DRAINING FROM RECTUM AND FISTULAS. ULCER TO COCCYX LEAKING STOOL CLEANED AND LEFT OPEN DUE TO DRAINAGE OF STOOL. COVERED WITH ATTENDS. IV REPLACED IN RAC FLUSHED WITHOUT DIFFICULTY. PT SLEPT T/O MOST OF THIS SHIFT.
[2024-08-01 07:39] VITALS: BP 101/63
[2024-08-01 09:05] LABS: BASOPHILS ABSOLUTE AUTO 0.02 K/mm3 (0.00-0.23); BASOPHILS PERCENT AUTO 0 % (0-2); EOSINOPHILS ABSOLUTE AUTO 0.02 K/mm3 (0.00-0.68); EOSINOPHILS PERCENT AUTO 0 % (0-6); Hematocrit 30.1 % (33.0-51.0); Hemoglobin 9.6 g/dL (11.5-16.0); IMMATURE GRAN ABSOLUTE AUTO 0.04 K/mm3 (0.00-0.10); IMMATURE GRAN PERCENT AUTO 1 % (0-1); LYMPHOCYTES ABSOLUTE AUTO 1.93 K/mm3 (0.84-5.20); LYMPHOCYTES PERCENT AUTO 27 % (21-46); MONOCYTES ABSOLUTE AUTO 0.53 K/mm3 (0.16-1.47); MONOCYTES PERCENT AUTO 7 % (4-13); Mean Corpuscular HGB 29.2 pg (26.0-34.0); Mean Corpuscular HGB Conc 31.9 g/dL (31.5-36.5); Mean Corpuscular Volume 92 fL (80-100); Mean Platelet Volume 9.5 fL (9.1-12.4); NEUTROPHILS PERCENT AUTO 65 % (41-73); NRBC ABSOLUTE 0.05 K/mm3 (0.00-0.02); NRBC Auto 0.7 /100 WBC (0.0-0.2); Platelet Count 107 K/mm3 (150-400); RDW Coefficient Variation 17.7 % (11.7-14.2); RDW Standard Deviation 59.1 fL (35.1-46.3); Red Blood Cell Count 3.29 M/mm3 (3.80-5.20); White Blood Cell Count 7.24 K/mm3 (4.00-11.30)
[2024-08-01 09:17] LABS: Calcium, Blood 6.7 mg/dL (8.5-10.1); Creatinine, Blood 0.7 mg/dL (0.40-1.00); Potassium, Blood 3.4 mmol/L (3.5-5.5)
--- NOTE | 2024-08-01 11:29 | NUR ---
MD CONTACT MD NOTIFIED OF ACCIDENTAL PATIENT IV REMOVAL AND DIFFICULTY OVERNIGHT OBTAINING IV ACCESS. IV ULTRASOUND PLAEMENT ATTEMPTED BYT XIOMARA, UNSUCCESSFUL. MD STATES NO IV ORDER OKAY AT THIS TIME. IV MEDICATIONS INCLUDING ROCEPHIN AND ZOFRAN DISCONTINUED. PO ZOFRAN ORDER OBATAINED.
[2024-08-01] MEDS ORDERED: Ondansetron 4 MG SoluTab SL PRN (11:30)
[2024-08-01 12:48] VITALS: BP 116/64
[2024-08-01 15:34] VITALS: BP 122/67
--- NOTE | 2024-08-01 17:20 | NUR ---
PATIENT PULLED RIGHT AC IV, NO IV ACCESS AT THIS TIME PER PROVIDER. ALL MEDICATIONS PO. PATIENT COMPLIANT WITH TREATMENT AND MEDICATIONS. TELE IN PLACE NO EVENTS. ASSESSED COCCYX AND CLEANED WOUND.
[2024-08-01 19:35] VITALS: BP 106/70
[2024-08-01] MEDS ORDERED: Arginine/Glutamine/Calcium Hmb 1 Packet PO SCH (21:00)
[2024-08-02 00:29] VITALS: BP 125/70
[2024-08-02 05:44] VITALS: BP 112/65
--- NOTE | 2024-08-02 06:05 | NUR ---
SHIFT SUMMARY PT HAS RESTED MOST OF THE NIGHT. PT IRRITABLE AT TIMES. PT HAS HAVING FREQUENT LOOSE INCONTINENT STOOLS. FISTULA WOUND CLEANED PRN. GUIDO IN PLACE PATENT AND DRAINING. VITALS STABLE. PLAN OF CARE REMAINS UNCHANGED. BED IN LOWEST POSITION, CALL LIGHT WITHIN REACH.
[2024-08-02 07:42] LABS: BASOPHILS ABSOLUTE AUTO 0.02 K/mm3 (0.00-0.23); BASOPHILS PERCENT AUTO 0 % (0-2); EOSINOPHILS ABSOLUTE AUTO 0.03 K/mm3 (0.00-0.68); EOSINOPHILS PERCENT AUTO 0 % (0-6); Hematocrit 31.2 % (33.0-51.0); Hemoglobin 10.1 g/dL (11.5-16.0); IMMATURE GRAN ABSOLUTE AUTO 0.04 K/mm3 (0.00-0.10); IMMATURE GRAN PERCENT AUTO 1 % (0-1); LYMPHOCYTES ABSOLUTE AUTO 1.71 K/mm3 (0.84-5.20); LYMPHOCYTES PERCENT AUTO 23 % (21-46); MONOCYTES ABSOLUTE AUTO 0.69 K/mm3 (0.16-1.47); MONOCYTES PERCENT AUTO 9 % (4-13); Mean Corpuscular HGB 30.1 pg (26.0-34.0); Mean Corpuscular HGB Conc 32.4 g/dL (31.5-36.5); Mean Corpuscular Volume 93 fL (80-100); Mean Platelet Volume 9.5 fL (9.1-12.4); NEUTROPHILS ABSOLUTE AUTO 4.88 K/mm3 (1.96-9.15); NEUTROPHILS PERCENT AUTO 66 % (41-73); Platelet Count 104 K/mm3 (150-400); RDW Coefficient Variation 17.4 % (11.7-14.2); RDW Standard Deviation 57.8 fL (35.1-46.3); Red Blood Cell Count 3.35 M/mm3 (3.80-5.20); White Blood Cell Count 7.37 K/mm3 (4.00-11.30)
[2024-08-02 08:09] LABS: Bun/Creatinine Ratio 23.7 (12.0-20.0); Calcium, Blood 7.2 mg/dL (8.5-10.1); Creatinine, Blood 0.68 mg/dL (0.40-1.00); Potassium, Blood 3.6 mmol/L (3.5-5.5)
--- NOTE | 2024-08-02 08:30 | NUR ---
CALLED DR SLATER- SPOKE TO DR SLATER, THE PT HAS LOST IV ACCESS AND SHE DOES NOT HAVE ANY IV MEDICATIONS, TALKED ABOUT NEED FOR REPLACING THE IV OR LEAVING IT OUT. RECIEVED AN ORDER FOR NO IV ACCESS. ALSO SPOKE ABOUT DAILY IM VITAMIN B-12, RECIEVED A VERBAL ORDER TO CHANGE TO PO B-12.
[2024-08-02 09:23] VITALS: BP 103/54
--- NOTE | 2024-08-02 10:38 | NUR ---
CALLED DR CHAPARRO- PT HAS NO IV ACESS. PER REPORT OK TO LEAVE OUT, HOWEVER THE RE IS NO (NO IV ACCESS) ORDER. PT IS CURRENTLY ON TELE, IV ACCESS IS REQUIRED PER POLICY. LEFT A MESSAGE, WAITING FOR A CALL BACK.
--- NOTE | 2024-08-02 10:46 | NUR ---
CALLED DR NORRIS- PT HAS A WOUND THAT IS OPEN TO AIR, PER REPORT STOOL PASES THROUGH A FISTULA OUT THROUGH THE WOUND, THE WOUND WAS CLEANED WITH THE ATTENDS CHANGE AD THERE WAS STOOL IN THE WOUND, PT ALSO HAS STOOL THAT PASSES THROUGH A FISTULA AND INTO THE VAGINA. THIS WAS ALSO CLEANED. SPOKE TO DR HERNANDEZ ON ROUNDS ABOUT WOUND CARE, THE ORDER IS TO CHANGE DAILY, HOWEVER THRE IS NO DRESSING TO CHANGE. WOUND CARE WILL BE PER GENERAL SURGERY CONSULT. GEN SURGERY CONSULT NOTE DOES NOT MENTION THE WOUND CARE. CALLED DR NORRIS TO GET ORDERS FOR WOUND CARE. LEFT A MESSAGE WAITING FOR A CALL BACK.
[2024-08-02 10:49] LABS: C DIFFICILE DNA NEGATIVE (Negative)
--- NOTE | 2024-08-02 10:53 | NUR ---
RECIEVED A CALL FROM DR NORRIS- RECIEVED WOUND CARE ORDERS WILL DRESS THE WOUND PER ORDERS AD PLACE THE ORDERS IN ORDER MANAGEMENT.
[2024-08-02 12:29] VITALS: BP 94/53
[2024-08-02] MEDS ORDERED: Trimethoprim/Sulfamethoxazole DS Tab PO SCH (15:30)
[2024-08-02 16:07] VITALS: BP 99/58
--- NOTE | 2024-08-02 19:09 | NUR ---
PT ALERT, ORIENTED, ABLE TO MAKE NEEDS KNOWN. PT LIKES TO BE LEFT ALONE, BUT DOES ALLOW PERSONAL CARE. DECRESED WHEEPING IN UPPER ARMS THE DAY PROGRESSED. PT CONTINUES TO HAVE LOOSE STOOL. CDIFF RESULTS NEGATIVE. PT 2 PERSON ASSIST WITH BED MOBILITY. PT REPOSITIONED EVERY 2 HOURS. PTS COCCYX WOUND PACKED AND CHANGED NEEDED DUE TO LOOSE STOOLS. PT GUIDO PATENT WITH CLEAR YELLOW URINE. PT UP TO CHAIR FOR ALL MEALS. PT DENIES ANY UNMET NEEDS
[2024-08-02 19:43] VITALS: BP 108/66
[2024-08-03] MEDS ORDERED: Acetaminophen 325 MG TABLET PO PRN (01:30)
--- NOTE | 2024-08-03 01:30 | NUR ---
NEW T-ORDER RECEIVED FROM THE ON-CALL HOSPITALIST: TYLENOL 325-650MG PO Q6HRS PRN. ENTERED TO [employer], SEE EMAR.
--- NOTE | 2024-08-03 03:11 | NUR ---
SHIFT SUMMARY NO ACUTE EVENTS DURING THIS SHIFT. NEW ORDER FOR TYLENOL PO PRN ADMINISTERED FOR C/O BILATERAL LE PAIN, PT RATES 10/12. PT MOSTLY REFUSING Q2HR REPOSITIONING. SML LOOSE STOOL X1, COCCYX/RECTAL DRESSING C/D/I. UE'S COVERED WITH ABD PADS AND NETTING BILATERALLY D/T WHEEPING. PT IS A/O X4, APPEARS AGITATED AT TIMES. MOSTLY COOPERATIVE WITH CARE. PT IS ABLE TO MAKE HER NEEDS KNOWN. BED AT THE LOWEST POSITION, CALL LIGHT W/I REACH. GUIDO DRAINING YELLOW COLOR URINE, GOOD OUTPUT DURING THIS SHIFT.
[2024-08-03 03:12] VITALS: BP 91/56
[2024-08-03 07:34] VITALS: BP 93/52
[2024-08-03] MEDS ORDERED: Acetaminophen325 M1 PO (13:40)
[2024-08-03] MEDS ORDERED: JUVEN PACKET1 EAC3 PO (13:40)
[2024-08-03] MEDS ORDERED: ONDA4ODT MM (13:41)
[2024-08-03] MEDS ORDERED: VISBIOME 112.51 EACH PO (13:43)
[2024-08-03] MEDS ORDERED: SULTRIDS PO (13:43)
--- NOTE | 2024-08-03 14:14 | NUR ---
ASSUMED CARE OF PT PT IS A/O X4 ASSISTED UP TO CHAIR AND MICHELE 20 MIN BEFORE WANTING TO GO BACK TO BED. PT WAS ABLE TO FEED SELF AND HAS BEEN COOPERATIVE WITH CARE. ASSESSMENT DONE, PAIN MINIMAL ONLY WHEN PT IS TRANSFERING. 1130 PT HAD LOOSE BM AND PACKING TO COCCYX FELL OUT. WOUND WAS CLEANSED AND REPACKED ORDERED AND COVERED WITH MEPILEX. WOUND IS QUARTER SIZE TUNNELING TOWARD THE RECTUM, EDGE TUNNELING ABOUT 1.5MM
== END 2024-08-03 13:04 | DRG 871 ==
LOC: ER 15:13 → ICUE 15:14 → MEDS 22:55 → ICUE 22:55 → MEDS 07-31 00:47
PROVIDERS: Emergency Medicine; Family Medicine; Internal Medicine; Student in an Organized Health Care Education/Training Program; ADMIT Internal Medicine
PROC: 3E033XZ Introduction of Vasopressor into Peripheral Vein, Percutaneous Approach (ICD-10-PCS; principal; 2024-07-28)
PROC: 02HV33Z Insertion of Infusion Device into Superior Vena Cava, Percutaneous Approach (ICD-10-PCS; 2024-07-28)
PROC: 3E03329 Introduction of Other Anti-infective into Peripheral Vein, Percutaneous Approach (ICD-10-PCS; 2024-07-28)
PROC: 30233J1 Transfusion of Nonautologous Serum Albumin into Peripheral Vein, Percutaneous Approach (ICD-10-PCS; 2024-07-28)
PROC: 30233N1 Transfusion of Nonautologous Red Blood Cells into Peripheral Vein, Percutaneous Approach (ICD-10-PCS; 2024-07-29)
PROC: 06H03DZ Insertion of Intraluminal Device into Inferior Vena Cava, Percutaneous Approach (ICD-10-PCS; 2024-07-31)
DX: A41.9 Sepsis, unspecified organism (principal); L89.153 Pressure ulcer of sacral region, stage 3; K50.10 Crohn's disease of large intestine without complications; N39.0 Urinary tract infection, site not specified; N17.9 Acute kidney failure, unspecified; I82.411 Acute embolism and thrombosis of right femoral vein; I82.431 Acute embolism and thrombosis of right popliteal vein; I82.451 Acute embolism and thrombosis of right peroneal vein; I82.441 Acute embolism and thrombosis of right tibial vein; D62 Acute posthemorrhagic anemia; I48.91 Unspecified atrial fibrillation; E78.5 Hyperlipidemia, unspecified; E88.09 Other disorders of plasma-protein metabolism, not elsewhere classified; E87.6 Hypokalemia; R54 Age-related physical debility; D69.6 Thrombocytopenia, unspecified; Z96.622 Presence of left artificial elbow joint; Z79.899 Other long term (current) drug therapy; Z98.890 Other specified postprocedural states; Z88.5 Allergy status to narcotic agent; Z95.818 Presence of other cardiac implants and grafts; Z87.19 Personal history of other diseases of the digestive system; Z90.49 Acquired absence of other specified parts of digestive tract
CPT/HCPCS: 36415; 36430; 36556; 51702; 71046; 74177; 76937; 80048; 80053; 81001; 82330; 82607; 82728; 82746; 83540; 83550; 83735; 83880; 84443; 84484; 85014; 85018; 85025; 86850; 86900; 86901; 86920; 87077; 87086; 87186; 87493; 93005; 93010; 93306; 93970; 94760; 94762; 96361-59; 96365-59; 96367-59; 96375-59; 97110; 97116; 97162; 97530; 99285-25; A9270; C1751; C1769; C1880; C1894; G0378; J0295; J0696; J1644; J1650; J2405; J3480; J7030; J7040; J7050; J7060; P9016; P9047; Q9967

== ENCOUNTER 2024-10-08 12:06 | Emergency (ER) | payer MEDICARE ==
[~2024-10-08] VITALS: Ht 157.5 cm; Wt 45.4 kg
[2024-10-08] MEDS ORDERED: NS 1,000 ML IV SCH (12:15)
[2024-10-08] MEDS ORDERED: CefTRIAXone Sodium 1,000 MG in NS 100 ML IV ONE (12:15)
[2024-10-08 12:44] LABS: Calcium, Ionized (POC) 0.92 mmol/L (1.10-1.46); Chloride (POC) 100 mmol/L (98-108); Creatinine (POC) 1.5 mg/dL (0.6-1.0); Glucose (ISTAT POC) 25 mg/dL (70-99); Hematocrit (POC) 31.0 % (36.0-46.0); Hemoglobin (POC) 10.5 g/dL (12.0-16.0); Potassium (POC) 4.0 mmol/L (3.5-5.5); Sodium (POC) 129 mmol/L (135-148); Total CO2 (POC) 11 mmol/L (21-32)
[2024-10-08 12:55] LABS: Hematocrit 33.3 % (33.0-51.0); Hemoglobin 10.0 g/dL (11.5-16.0); Mean Corpuscular HGB Conc 30.0 g/dL (31.5-36.5); Mean Corpuscular Volume 101 fL (80-100); NRBC ABSOLUTE 0.00 K/mm3 (0.00-0.02); NRBC Auto 0.0 /100 WBC (0.0-0.2); Platelet Count 190 K/mm3 (150-400); RDW Coefficient Variation 15.9 % (11.7-14.2); RDW Standard Deviation 58.8 fL (35.1-46.3)
[2024-10-08 13:14] LABS: BAND PERCENT MAN 8 % (0-8); BASOPHILS ABSOLUTE MAN 0.00 K/mm3 (0.00-0.23); BASOPHILS PERCENT MAN 0 % (0-2); EOSINOPHILS ABSOLUTE MAN 0.00 K/mm3 (0.00-0.68); EOSINOPHILS PERCENT MAN 0 % (0-6); LYMPHOCYTES ABSOLUTE MAN 1.23 K/mm3 (0.84-5.20); LYMPHOCYTES PERCENT MAN 5 % (21-46); MONOCYTES ABSOLUTE MAN 0.00 K/mm3 (0.16-1.47); MONOCYTES PERCENT MAN 0 % (4-13); NEUTROPHILS ABSOLUTE MAN 23.44 K/mm3 (1.96-9.15); SEG NEUTROPHILS PERCENT MAN 87 % (41-73)
[2024-10-08 13:20] VITALS: BP 95/15
[2024-10-08 13:23] LABS: Magnesium, Blood 1.8 mg/dL (1.6-2.4)
[2024-10-08 13:30] LABS: Alanine Aminotransfer (ALT/SGP 56.0 U/L (12-78); Albumin, Blood 0.8 g/dL (3.4-5.0); Albumin/Globulin Ratio 0.2 (0.8-1.8); Anion Gap 24.0 mmol/L (3-11); Aspartate Aminotrans (AST/SGOT 108.0 U/L (12-37); Bilirubin, Total 0.8 mg/dL (0.1-1.0); Blood Urea Nitrogen 26.0 mg/dL (8-24); CO2, Blood 10.0 mmol/L (21-32); Calcium, Blood 7.0 mg/dL (8.5-10.1); Chloride, Blood 101.0 mmol/L (98-108); Creatinine, Blood 1.35 mg/dL (0.40-1.00); Globulin, Blood 3.6 g/dL (2.2-4.0); Glucose, Blood 25.0 mg/dL (70-99); Phosphorus, Blood 5.6 mg/dL (2.5-4.9); Potassium, Blood 4.2 mmol/L (3.5-5.5); Sodium, Blood 131.0 mmol/L (136-145); Total Protein, Blood 4.4 g/dL (6.4-8.2)
[2024-10-08 13:48] LABS: pH Blood Venous 7.18 (7.34-7.37)
[2024-10-08] MEDS ORDERED: HYDROmorphone HCl/Pf 1MG SYR IV ONE (14:25)
[2024-10-08] MEDS ORDERED: Haloperidol Lactate Inj. 5 MG/ML Injection IV PRN (14:25)
[2024-10-08] MEDS ORDERED: HYDROmorphone HCl/Pf 1MG SYR IV PRN (14:30)
[2024-10-08] MEDS ORDERED: Ondansetron HCl 2 MG / ML 2ML Vial IV ONE (14:40)
== END 2024-10-08 17:44 ==
LOC: ER 12:06
PROVIDERS: Emergency Medicine
DX: A41.9 Sepsis, unspecified organism (principal); R65.21 Severe sepsis with septic shock; N17.9 Acute kidney failure, unspecified; J96.01 Acute respiratory failure with hypoxia; E87.20 Acidosis, unspecified; E16.2 Hypoglycemia, unspecified; I48.91 Unspecified atrial fibrillation; E78.5 Hyperlipidemia, unspecified; Z66 Do not resuscitate; Z95.818 Presence of other cardiac implants and grafts; Z88.5 Allergy status to narcotic agent; Z79.899 Other long term (current) drug therapy; N39.0 Urinary tract infection, site not specified
CPT/HCPCS: 80047; 80053; 81001; 82803; 83605; 83735; 83880; 84100; 84484; 85014; 85025; 87077; 87086; 87186; 93005; 93010; 94660; 96361; 96365; 96375; 99285-25; G0378; J0696; J1171; J7030

== ENCOUNTER → 2024-10-08 | Outpatient (CLI) | payer MEDICARE ==
[~2024-10-08] MED LIST changes: +Acetaminophen325 M1 PO; +ONDA4ODT MM; +SULTRIDS PO
[2024-10-08 12:23] LABS: Source, Urine Straight Cath
[2024-10-08 12:37] LABS: Color, Urine Yellow (P-Yellow); Glucose Qualitative, Urine Neg (Neg); Ketones, Urine 1+ (Neg); Leukocyte Esterase, Urine 3+ (Neg); Protein, Urine 2+ (Neg); Specific Gravity, Urine 1.015 (1.003-1.022); Urobilinogen, Urine 1+ (Normal)
[2024-10-08 12:46] LABS: Bilirubin, Urine 1+ (Neg); White Blood Cells, Urine TNTC /hpf (0-5)
== END ==
LOC: LAB 12:18 → LAB SHORT 12:18
PROVIDERS: Family Medicine
DX: N39.0 Urinary tract infection, site not specified (principal)
CPT/HCPCS: 81001; 87077; 87086; 87186